=== PATIENT | female | born 1995 | race Two or more races ===

== ENCOUNTER → 2024-10-21 | Outpatient (CLI) | payer MEDICAID | END | disposition home or self-care (01) | LOC: LAB 06:50 | PROVIDERS: ATTEND Obstetrics & Gynecology | DX: Z34.80 Encounter for supervision of other normal pregnancy, unspecified trimester (principal); Z3A.00 Weeks of gestation of pregnancy not specified | CPT/HCPCS: 36415; 82951; 83036; 86850; 86900; 86901 ==

== ENCOUNTER 2024-11-26 13:18 | Observation (INO) | payer MEDICAID ==
--- NOTE | 2024-11-26 14:21 | DVH ---
BIOPHYSICAL PROFILE HISTORY: GDMA1 TECHNIQUE: Multiple transabdominal real-time grayscale sonographic images through the gravid uterus of the fetus with duplex Doppler color flow and M-mode spectral analysis FINDINGS: BIOPHYSICAL PROFILE: breathing score: 2 movement score: 2 tone score: 2 Quantitative EDWIN score: 2 (EDWIN: 13.6 Cm.) Total score: The cervix not well visualized. Single live fetus in cephalic presentation. heart rate 163 beats per minute. Fundal placenta without previa or abruption IMPRESSION: Biophysical profile score: 8
[2024-11-26] MEDS ORDERED: PREN-96 PO (14:58)
[2024-11-26 15:10] LABS: Basophils # (auto) 0 10 ^3/uL (0-0.2); Basophils % (auto) 0.2 % (0.0-2.0); Eosinophils # (auto) 0 10 ^3/uL (0-0.8); Eosinophils % (auto) 0.6 % (0.0-7.0); Hematocrit 33.7 % (36.0-46.0); Hemoglobin 11.6 g/dL (12.2-16.2); Lymphocytes # (auto) 1.3 10 ^3/uL (0.4-5.4); Lymphocytes % (auto) 15.4 % (10.0-50.0); Mean Corpuscular Hemoglobin 30.2 pg (28.0-32.0); Mean Corpuscular Hgb Conc. 34.3 g/dL (32.0-36.0); Monocytes # (auto) 0.5 10 ^3/uL (0-1.3); Monocytes % (auto) 6.6 % (0.0-12.0); Neutrophils # (auto) 6.4 10 ^3/uL (1.6-8.6); Neutrophils % (auto) 77.2 % (37.0-80.0); Platelet Count (auto) 173 10^3/uL (140-450); Red Blood Cells 3.83 10^6/uL (4.0-5.20); Red Cell Distribution Width 13.5 % (11.8-14.3); White Blood Cell 8.3 10^3/uL (4.4-10.8)
[2024-11-26 15:13] LABS: Urine Bacteria FEW /hpf (None Seen); Urine Blood Negative /uL (Negative); Urine Clarity Turbid (Clear); Urine Color Yellow (Yellow); Urine Mucus FEW (None Seen); Urine Protein, UAD 1+ (Negative); Urine Specific Gravity 1.033 (1.001-1.035); Urine Squamous Epithelial Cell MOD /hpf (<5); Urine Urobilinogen 3 mg/dL (Negative); Urine WBC 5 /HPF (0-5); Urine pH 6.5 (5.0-9.0)
[2024-11-26 15:21] LABS: Protein, Urine 27.3 mg/dL (1-14)
[2024-11-26 15:23] LABS: Creatinine, Urine 189.71 mg/dL (30.0-125.0); Urine Protein/Creatinine Ratio 0.14
[2024-11-26 15:25] LABS: INR 0.91 (0.9-1.15); Partial Thromboplastin Time 25.5 SEC (24.5-34.5); Prothrombin Time 9.7 sec (9.3-11.8)
[2024-11-26 15:26] LABS: Alanine Aminotransferase 19 U/L (7-40); Albumin 3.8 g/dL (3.2-4.8); Anion Gap 8 (5-15); Aspartate Aminotransferase 14 U/L (13-40); Calcium 9.9 mg/dL (8.7-10.4); Carbon Dioxide 25 mmol/L (20-31); Chloride 106 mmol/L (98-107); Glucose 100 mg/dL (74-106); Potassium 4.1 mmol/L (3.5-5.1); Sodium 139 mmol/L (136-145); Total Protein 6.5 g/dL (5.7-8.2)
[2024-11-26 15:27] LABS: Bilirubin, Total 0.4 mg/dL (0.2-1.0)
[2024-11-26 15:28] LABS: Alkaline Phosphatase 141 U/L (46-116); Blood Urea Nitrogen 5 mg/dL (9-23)
[2024-11-26 15:42] LABS: Uric Acid 5.2 mg/dL (3.1-7.8)
--- NOTE | 2024-11-26 18:36 | DVHDS2 ---
Physician Discharge Progress N Final Diagnosis: gdm 32wks Operations or Procedures: Operations or Procedures nst reactive reviewed Condition on Discharge: Good Disposition: Home Discharge Instructions: Diet: Consistent carbohydrate Activity: No Restrictions, As Tolerated Medications: na Follow Up Care: Specialist: 1w Discharge Statement: "Patient was advised to return to the ER or call 911 if any headaches, dizziness, shortness of breath, chest pain, abdominal pain, bleeding, fevers, or worsening of medical condition. Patient was counseled about treatment plan, medications, possible side effects, patientverbalized understanding. All questions were answered to the best of my ability. This discharge took greater then 30 minutes in planning, reviewing documentation, counseling the patient, and discussing with other team members." Visit Coding OBGYN Date of Service: Nov 26, 2024 Billing Provider: CAITLYN LEONARD DO SUPERVISOR PUMPING [employer]ATION Common Visit Codes: [id number] OBS CARE (MOD), [id number] INP/OBS CARE (HIGH) CAITLYN LEONARD DO Nov 26, 2024 18:36
== END 2024-11-26 15:35 | disposition home or self-care (01) ==
LOC: UNDOADMOB 13:18 → LDRP 13:18
PROVIDERS: ADMIT Obstetrics & Gynecology; ATTEND Obstetrics & Gynecology
DX: O24.419 Gestational diabetes mellitus in pregnancy, unspecified control (principal); R79.1 Abnormal coagulation profile; Z3A.32 32 weeks gestation of pregnancy; Z79.899 Other long term (current) drug therapy; Z98.890 Other specified postprocedural states
CPT/HCPCS: 36415; 59025; 76819; 80053; 81001; 81002; 82570; 82948; 82962; 84156; 84550; 85025; 85610; 85730; 94760; G0378

== ENCOUNTER 2024-11-30 05:46 | Observation (INO) | payer MEDICAID ==
[~2024-11-30 05:46] MED LIST: PREN-96 PO
--- NOTE | 2024-11-30 08:56 | DVH ---
BIOPHYSICAL PROFILE HISTORY: GDMA1 R/O PIH TECHNIQUE: Multiple transabdominal real-time grayscale sonographic images through the gravid uterus of the fetus with duplex Doppler color flow and M-mode spectral analysis FINDINGS: BIOPHYSICAL PROFILE: breathing score: 2 movement score: 2 tone score: 2 Quantitative EDWIN score: 2 (EDWIN: 15.4 Cm.) Total score: 8 The cervix not well visualized. Single live fetus in cephalic presentation. heart rate 135 beats per minute. Grade 2 fundal placenta without previa or abruption IMPRESSION: Biophysical profile score: 8
--- NOTE | 2024-11-30 09:29 | DVHDS2 ---
Physician Discharge Progress N Final Diagnosis: testing for GDM, A1 Secondary Diagnosis: ruled out preeclampsia last visit Operations or Procedures: Operations or Procedures 29yo IUP@32.4wks, +FM, denies BAJWA/vision changes/RUQ pain/UCs/VB/LOF VSS NST reactive FKC/PreE/PTL precautions reviewed Dr. Cortés consulted, agrees with POC. Other Interventions Other Interventions [place] [address] Ph: [phone] DIAGNOSTIC IMAGING Diagnostic Imaging Report : [id number] Signed PATIENT: OMARI EDGE ACCT: [id number] UNIT: [id number] : 1995 LOC: [facility] ROOM / BED: [facility] / A AGE / SEX: 29 / F ADM STATUS: ADM IN SERVICE 9 ORDERING PHYSICIAN: MARY HOLM CNM PROCEDURE(s): BPP - BIOPHYSICAL PROFILE REASON: GDMA1 R/O PIH ORDER NUMBER(s): [id number], ACCESSION NUMBER(s): [id number] BIOPHYSICAL PROFILE HISTORY: GDMA1 R/O PIH TECHNIQUE: Multiple transabdominal real-time grayscale sonographic images through the gravid uterus of the fetus with duplex Doppler color flow and M-mode spectral analysis FINDINGS: BIOPHYSICAL PROFILE: breathing score: 2 movement score: 2 tone score: 2 Quantitative EDWIN score: 2 (EDWIN: 15.4 Cm.) Total score: 8 The cervix not well visualized. Single live fetus in cephalic presentation. heart rate 135 beats per minute. Grade 2 fundal placenta without previa or abruption IMPRESSION: Biophysical profile score: 8 ATED BY: EVIE LAMB MD DICTATED DATE/TIME: 11/30/24852 SIGNED BY: EVIE LAMB MD SIGNED DATE/TIME: 11/30/24852 CC: Condition on Discharge: Stable Disposition: Home Discharge Instructions: Diet: Consistent carbohydrate Activity: No Restrictions, As Tolerated Medications: see med list Follow Up Care: Specialist: f/u in 1 wk Discharge Statement: "Patient was advised to return to the ER or call 911 if any headaches, dizziness, shortness of breath, chest pain, abdominal pain, bleeding, fevers, or worsening of medical condition. Patient was counseled about treatment plan, medications, possible side effects, patientverbalized understanding. All questions were answered to the best of my ability. This discharge took greater then 30 minutes in planning, reviewing documentation, counseling the patient, and discussing with other team members." Visit Coding OBGYN Date of Service: Nov 30, 2024 Billing Provider: MARY HOLM CNM CABLE TESTERS HELPER Common Visit Codes: [id number] INP/OBS CARE (HIGH) CABLE TESTERS HELPER Procedure Codes: 68396-54- NON-STRESS TEST MARY HOLM CNM Nov 30, 2024 09:29
== END 2024-11-30 09:48 | disposition home or self-care (01) ==
LOC: LDRP 08:02
PROVIDERS: ADMIT Obstetrics & Gynecology; ATTEND Obstetrics & Gynecology
DX: O24.410 Gestational diabetes mellitus in pregnancy, diet controlled (principal); Z3A.32 32 weeks gestation of pregnancy; Z79.899 Other long term (current) drug therapy; Z98.890 Other specified postprocedural states
CPT/HCPCS: 59025; 76819; 81002; 82948; 82962; 94760; G0378

== ENCOUNTER 2024-12-10 15:32 | Observation (INO) | payer MEDICAID ==
--- NOTE | 2024-12-10 17:09 | DVH ---
BIOPHYSICAL PROFILE HISTORY: GDMA1 Comparison Study: US BIOPHYSICAL PROFILE on DOS: 11/30/24, US BIOPHYSICAL PROFILE on DOS: 11/26/24 TECHNIQUE: Multiple real-time grayscale sonographic images through the gravid uterus of the fetus wi th duplex Doppler color flow and M-mode spectral analysis FINDINGS: BIOPHYSICAL PROFILE: breathing score: 2 movement score: 2 tone score: 2 Quantitative EDWIN score: 2 (EDWIN: 14.5 Cm.) Total score: 8 The cervix is not visualized Single live fetus in cephalic presentation. heart rate 136 beats per minute. Grade 1, fundal/posterior placenta without previa or abruption IMPRESSION: Biophysical profile score: 8
--- NOTE | 2024-12-15 07:29 | DVHDS2 ---
Physician Discharge Progress N Final Diagnosis: gdm 34wks Operations or Procedures: Operations or Procedures nst reactive reviwed,sono Condition on Discharge: Good Disposition: Home Discharge Instructions: Diet: Consistent carbohydrate Activity: No Restrictions, As Tolerated Medications: na Follow Up Care: Primary Care Provider: 3d Discharge Statement: "Patient was advised to return to the ER or call 911 if any headaches, dizziness, shortness of breath, chest pain, abdominal pain, bleeding, fevers, or worsening of medical condition. Patient was counseled about treatment plan, medications, possible side effects, patientverbalized understanding. All questions were answered to the best of my ability. This discharge took greater then 30 minutes in planning, reviewing documentation, counseling the patient, and discussing with other team members." Visit Coding OBGYN Date of Service: Dec 10, 2024 Billing Provider: CAITLYN LEONARD DO SENIOR POLICY ANALYST Common Visit Codes: [id number] OBS CARE (HIGH) SENIOR POLICY ANALYST Procedure Codes: 02791-34- NON-STRESS TEST CAITLYN LEONARD DO Dec 15, 2024 07:29
== END 2024-12-10 17:10 | disposition home or self-care (01) ==
LOC: LDRP 15:32 → UNDOADMOB 15:32 → LDRP 15:39
PROVIDERS: ADMIT Obstetrics & Gynecology; ATTEND Obstetrics & Gynecology
DX: O24.419 Gestational diabetes mellitus in pregnancy, unspecified control (principal); Z3A.34 34 weeks gestation of pregnancy; Z79.899 Other long term (current) drug therapy; Z98.890 Other specified postprocedural states
CPT/HCPCS: 59025; 76819; 81002; 82948; 94760; G0378

== ENCOUNTER 2024-12-17 15:33 | Observation (INO) | payer MEDICAID ==
--- NOTE | 2024-12-17 17:05 | DVH ---
BIOPHYSICAL PROFILE HISTORY: GDMA1 TECHNIQUE: Multiple real-time grayscale sonographic images through the gravid uterus of the fetus wi th duplex Doppler color flow. FINDINGS: BIOPHYSICAL PROFILE: breathing score: 2 movement score: 2 tone score: 2 Quantitative EDWIN score: 2 Total score: 8 out of 8 Single live intrauterine . heart rate of 133 beats per minute. lie cephalic. EDWIN 16.3 cm. Placenta fundal lead positioned. Placental calcifications. IMPRESSION: Biophysical profile score: 8 out of 8
--- NOTE | 2024-12-18 05:49 | DVHDS2 ---
Physician Discharge Progress N Final Diagnosis: gdm 35wks Operations or Procedures: Operations or Procedures nst reactive reviwed,sono Condition on Discharge: Good Disposition: Home Discharge Instructions: Diet: Consistent carbohydrate Activity: No Restrictions, As Tolerated Medications: na Follow Up Care: Specialist: 1w Discharge Statement: "Patient was advised to return to the ER or call 911 if any headaches, dizziness, shortness of breath, chest pain, abdominal pain, bleeding, fevers, or worsening of medical condition. Patient was counseled about treatment plan, medications, possible side effects, patientverbalized understanding. All questions were answered to the best of my ability. This discharge took greater then 30 minutes in planning, reviewing documentation, counseling the patient, and discussing with other team members." Visit Coding OBGYN Date of Service: Dec 17, 2024 Billing Provider: CAITLYN LEONARD DO COUNTY DEMONSTRATOR Common Visit Codes: [id number] OBS CARE (HIGH) COUNTY DEMONSTRATOR Procedure Codes: 10537-32- NON-STRESS TEST CAITLYN LEONARD DO Dec 18, 2024 05:49
== END 2024-12-17 16:54 | disposition home or self-care (01) ==
LOC: LDRP 15:33
PROVIDERS: ADMIT Obstetrics & Gynecology; ATTEND Obstetrics & Gynecology
DX: O24.419 Gestational diabetes mellitus in pregnancy, unspecified control (principal); Z3A.35 35 weeks gestation of pregnancy; Z79.899 Other long term (current) drug therapy; Z98.890 Other specified postprocedural states
CPT/HCPCS: 59025; 76819; 81002; 82948; 82962; 94760; G0378

== ENCOUNTER 2024-12-21 15:54 | Observation (INO) | payer MEDICAID ==
--- NOTE | 2024-12-21 16:33 | DVH ---
BIOPHYSICAL PROFILE HISTORY: GDMA1 TECHNIQUE: Multiple real-time grayscale sonographic images through the gravid uterus of the fetus wi th duplex Doppler color flow. FINDINGS: BIOPHYSICAL PROFILE: breathing score: 2 movement score: 2 tone score: 2 Quantitative EDWIN score: 2 Total score: 8 out of 8 Live intrauterine with heart rate of 142 beats per minute. lie is cephalic. P lacenta is posteriorly/fundally positioned. IMPRESSION: Biophysical profile score: 8 out of 8
--- NOTE | 2024-12-21 17:03 | DVHDS2 ---
Physician Discharge Progress N Final Diagnosis: testing for GDM, A1 Operations or Procedures: Operations or Procedures 29yo IUP@35.5wks VSS NST reactive FKC/PTL precautions reviewed Dr. Cortés consulted, agrees with POC. Other Interventions Other Interventions [address] [address] Ph: [phone] DIAGNOSTIC IMAGING Diagnostic Imaging Report : [id number] Signed PATIENT: OMARI EDGE ACCT: [id number] UNIT: [id number] : 1995 LOC: [facility] ROOM / BED: TRIAGE1 / A AGE / SEX: 29 / F ADM STATUS: ADM IN SERVICE 1603 ORDERING PHYSICIAN: MARY HOLM CNM PROCEDURE(s): BPP - BIOPHYSICAL PROFILE REASON: GDMA1 ORDER NUMBER(s): [id number], ACCESSION NUMBER(s): [id number] BIOPHYSICAL PROFILE HISTORY: GDMA1 TECHNIQUE: Multiple real-time grayscale sonographic images through the gravid uterus of the fetus with duplex Doppler color flow. FINDINGS: BIOPHYSICAL PROFILE: breathing score: 2 movement score: 2 tone score: 2 Quantitative EDWIN score: 2 Total score: 8 out of 8 Live intrauterine with heart rate of 142 beats per minute. lie is cephalic. Placenta is posteriorly/fundally positioned. IMPRESSION: Biophysical profile score: 8 out of 8 ATED BY: DEBBIE HUBBARD MD DICTATED DATE/TIME: 12/21/24 1631 SIGNED BY: DEBBIE HUBBARD MD SIGNED DATE/TIME: 12/21/24 1631 CC: Condition on Discharge: Stable Disposition: Home Discharge Instructions: Diet: Consistent carbohydrate Activity: No Restrictions, As Tolerated Medications: see med list Follow Up Care: Specialist: f/u in 1wk Discharge Statement: "Patient was advised to return to the ER or call 911 if any headaches, dizziness, shortness of breath, chest pain, abdominal pain, bleeding, fevers, or worsening of medical condition. Patient was counseled about treatment plan, medications, possible side effects, patientverbalized understanding. All questions were answered to the best of my ability. This discharge took greater then 30 minutes in planning, reviewing documentation, counseling the patient, and discussing with other team members." Visit Coding OBGYN Date of Service: Dec 21, 2024 Billing Provider: MARY HOLM CNM GRAPHIC DESIGN ASSISTANT Common Visit Codes: [id number] OBS CARE (HIGH) GRAPHIC DESIGN ASSISTANT Procedure Codes: 22590-57- NON-STRESS TEST MARY HOLM CNM Dec 21, 2024 17:02
== END 2024-12-21 17:07 | disposition home or self-care (01) ==
LOC: LDRP 15:54 → UNDOADMOB 15:54 → LDRP 16:03 → UNDODISOB 17:07
PROVIDERS: ADMIT Obstetrics & Gynecology; ATTEND Obstetrics & Gynecology
DX: O24.419 Gestational diabetes mellitus in pregnancy, unspecified control (principal); Z98.890 Other specified postprocedural states; Z79.899 Other long term (current) drug therapy; Z3A.35 35 weeks gestation of pregnancy
CPT/HCPCS: 59025; 76819; 81002; 82948; 82962; 94760; G0378

== ENCOUNTER 2024-12-28 06:23 | Observation (INO) | payer MEDICAID ==
--- NOTE | 2024-12-28 09:28 | DVH ---
BIOPHYSICAL PROFILE HISTORY: GDMA1 Comparison Study: US BIOPHYSICAL PROFILE on DOS: 12/21/24, US BIOPHYSICAL PROFILE on DOS: 12/17/24, US B IOPHYSICAL PROFILE on DOS: 12/10/24, US BIOPHYSICAL PROFILE on DOS: 11/30/24, US BIOPHYSICAL PROFILE on DOS: 11/26/24 TECHNIQUE: Multiple real-time grayscale sonographic images through the gravid uterus of the fetus wi th duplex Doppler color flow and M-mode spectral analysis FINDINGS: BIOPHYSICAL PROFILE: breathing score: 2 movement score: 2 tone score: 2 Quantitative EDWIN score: 2 (EDWIN: 15.1 Cm.) Total score: 8 The cervix is not visualized Single live fetus in cephalic presentation. heart rate 137.22 beats per minute. Fundal/posterior placenta without previa or abruption IMPRESSION: Biophysical profile score: 8
--- NOTE | 2024-12-28 09:55 | DVHDS2 ---
Physician Discharge Progress N Final Diagnosis: testing for GDM, A1 Operations or Procedures: Operations or Procedures 29yo IUP@36.4wks VSS NST reactive FKC/PTL precautions reviewed. Dr. Cortés consulted, agrees with POC. Other Interventions Other Interventions [address] [address] Ph: [phone] DIAGNOSTIC IMAGING Diagnostic Imaging Report : [id number] Signed PATIENT: OMARI EDGE ACCT: [id number] UNIT: [id number] : 1995 LOC: LD ROOM / BED: TRIAGE2 / A AGE / SEX: 29 / F ADM STATUS: ADM IN SERVICE 2 ORDERING PHYSICIAN: MARY HOLM CNM PROCEDURE(s): BPP - BIOPHYSICAL PROFILE REASON: GDMA1 ORDER NUMBER(s): [id number], ACCESSION NUMBER(s): [id number] BIOPHYSICAL PROFILE HISTORY: GDMA1 Comparison Study: US BIOPHYSICAL PROFILE on DOS: 12/21/24, US BIOPHYSICAL PROFILE on DOS: 12/17/24, US BIOPHYSICAL PROFILE on DOS: 12/10/24, US BIOPHYSICAL PROFILE on DOS: 11/30/24, US BIOPHYSICAL PROFILE on DOS: 11/26/24 TECHNIQUE: Multiple real-time grayscale sonographic images through the gravid uterus of the fetus with duplex Doppler color flow and M-mode spectral analysis FINDINGS: BIOPHYSICAL PROFILE: breathing score: 2 movement score: 2 tone score: 2 Quantitative EDWIN score: 2 (EDWIN: 15.1 Cm.) Total score: 8 The cervix is not visualized Single live fetus in cephalic presentation. heart rate 137.22 beats per minute. Fundal/posterior placenta without previa or abruption IMPRESSION: Biophysical profile score: 8 ATED BY: TAVARES FUNES MD DICTATED DATE/TIME: 12/28/24924 SIGNED BY: TAVARES FUNES MD SIGNED DATE/TIME: 12/28/24924 CC: Condition on Discharge: Stable Disposition: Home Discharge Instructions: Diet: Consistent carbohydrate Activity: No Restrictions, As Tolerated Medications: see med list Follow Up Care: Specialist: f/u in 1 wk Discharge Statement: "Patient was advised to return to the ER or call 911 if any headaches, dizziness, shortness of breath, chest pain, abdominal pain, bleeding, fevers, or worsening of medical condition. Patient was counseled about treatment plan, medications, possible side effects, patientverbalized understanding. All questions were answered to the best of my ability. This discharge took greater then 30 minutes in planning, reviewing documentation, counseling the patient, and discussing with other team members." Visit Coding OBGYN Date of Service: Dec 28, 2024 Billing Provider: MARY HOLM CNM ENERGY INFRASTRUCTURE ENGINEER Common Visit Codes: [id number] OBS CARE (HIGH) ENERGY INFRASTRUCTURE ENGINEER Procedure Codes: 48743-47- NON-STRESS TEST MARY HOLM CNM Dec 28, 2024 09:55
== END 2024-12-28 09:54 | disposition home or self-care (01) ==
LOC: LDRP 08:50
PROVIDERS: ADMIT Obstetrics & Gynecology; ATTEND Obstetrics & Gynecology
DX: O24.419 Gestational diabetes mellitus in pregnancy, unspecified control (principal); Z3A.36 36 weeks gestation of pregnancy; Z79.899 Other long term (current) drug therapy; Z98.890 Other specified postprocedural states
CPT/HCPCS: 59025; 76819; 81002; 82948; 82962; 94760; G0378

== ENCOUNTER → 2024-12-29 | Outpatient (CLI) | payer MEDICAID ==
[2024-12-29 08:48] LABS: Hematocrit 33.7 % (36.0-46.0); Hemoglobin 11.7 g/dL (12.2-16.2); Mean Corpuscular Hemoglobin 30.3 pg (28.0-32.0); Mean Corpuscular Volume 87.2 fL (80.0-100.0); Nucleated Red Blood Cells % 0.1 %
[2024-12-30 17:07] LABS: Chlamydia Trachomatis, NAA Negative (Negative); Neisseria gonorrhoeae, NAA Negative (Negative)
== END | disposition home or self-care (01) ==
LOC: LAB 08:28
PROVIDERS: ATTEND Obstetrics & Gynecology
DX: Z34.00 Encounter for supervision of normal first pregnancy, unspecified trimester (principal); Z72.51 High risk heterosexual behavior; Z3A.00 Weeks of gestation of pregnancy not specified
CPT/HCPCS: 36415; 85025; 86780

== ENCOUNTER 2025-01-04 08:45 | Observation (INO) | payer MEDICAID ==
--- NOTE | 2025-01-04 09:59 | DVH ---
BIOPHYSICAL PROFILE HISTORY: GDMA1 TECHNIQUE: Multiple transabdominal real-time grayscale sonographic images through the gravid uterus o f the fetus with duplex doppler color flow and M-mode spectral analysis FINDINGS: BIOPHYSICAL PROFILE: breathing score: 2 movement score: 2 tone score: 2 Quantitative EDWIN score: 2 (EDWIN: 13.2 cm.) Total score: 8/8 Single live fetus in cephalic presentation. heart rate 139 beats per minute. Fundal, posterior placenta without previa or abruption Biophysical profile score 8/8 corresponding to an BAILEE of 01/21/25 IMPRESSION: Biophysical profile score: 8/8
--- NOTE | 2025-01-04 11:10 | DVHDS2 ---
Physician Discharge Progress N Final Diagnosis: testing for GDM, A1 Operations or Procedures: Operations or Procedures 29yo IUP@37.4wks VSS NST reactive FKC/labor precautions reviewed Dr. Cortés consulted, agrees with POC. Condition on Discharge: Stable Disposition: Home Discharge Instructions: Diet: Consistent carbohydrate Activity: No Restrictions, As Tolerated Medications: SEE MED LIST Follow Up Care: Specialist: f/u in 1 wk Discharge Statement: "Patient was advised to return to the ER or call 911 if any headaches, dizziness, shortness of breath, chest pain, abdominal pain, bleeding, fevers, or worsening of medical condition. Patient was counseled about treatment plan, medications, possible side effects, patientverbalized understanding. All questions were answered to the best of my ability. This discharge took greater then 30 minutes in planning, reviewing documentation, counseling the patient, and discussing with other team members." Visit Coding OBGYN Date of Service: Jan 04, 2025 Billing Provider: MARY HOLM CNM TABLE GAMES SUPERVISOR Common Visit Codes: [id number] OBS CARE (HIGH) TABLE GAMES SUPERVISOR Procedure Codes: 19438-18- NON-STRESS TEST MARY HOLM CNM Jan 04, 2025 11:10
== END 2025-01-04 10:58 | disposition home or self-care (01) ==
LOC: LDRP 08:45
PROVIDERS: ADMIT Obstetrics & Gynecology; ATTEND Obstetrics & Gynecology
DX: O24.419 Gestational diabetes mellitus in pregnancy, unspecified control (principal); O36.5930 Maternal care for other known or suspected poor fetal growth, third trimester, not applicable or unspecified; Z3A.37 37 weeks gestation of pregnancy; Z98.890 Other specified postprocedural states; Z79.899 Other long term (current) drug therapy
CPT/HCPCS: 59025; 76819; 81002; 82948; 82962; 94760; G0378

== ENCOUNTER 2025-01-11 07:29 | Observation (INO) | payer MEDICAID ==
--- NOTE | 2025-01-11 09:40 | DVH ---
BIOPHYSICAL PROFILE HISTORY: GDMA1 Comparison Study: US BIOPHYSICAL PROFILE on DOS: 01/04/25, US BIOPHYSICAL PROFILE on DOS: 12/28/24, US B IOPHYSICAL PROFILE on DOS: 12/21/24, US BIOPHYSICAL PROFILE on DOS: 12/17/24, US BIOPHYSICAL PROFILE on DOS: 12/10/24 TECHNIQUE: Multiple real-time grayscale sonographic images through the gravid uterus of the fetus wi th duplex Doppler color flow and M-mode spectral analysis FINDINGS: BIOPHYSICAL PROFILE: breathing score: 2 movement score: 2 tone score: 2 Quantitative EDWIN score: 2 (EDWIN: 16.7 Cm.) Total score: 8 The cervix is not visualized Single live fetus in cephalic presentation. heart rate 141 beats per minute. Fundal/posterior placenta without previa or abruption. placental venous stephens is noted. IMPRESSION: Biophysical profile score: 8
--- NOTE | 2025-01-11 11:39 | DVHDS2 ---
Physician Discharge Progress N Final Diagnosis: testing for GDM, A1 Operations or Procedures: Operations or Procedures 29yo IUP@38.4wks VSS NST reactive FKC/labor precautions reviewed Dr. Cortés consulted, agree with POC. Other Interventions Other Interventions [address] [address] Ph: [phone] DIAGNOSTIC IMAGING Diagnostic Imaging Report : [id number] Signed PATIENT: OMARI EDGE ACCT: [id number] UNIT: [id number] : 1995 LOC: LD ROOM / BED: LD1 / A AGE / SEX: 29 / F ADM STATUS: ADM IN SERVICE 5 ORDERING PHYSICIAN: CAITLYN CORTÉS DO PROCEDURE(s): BPP - BIOPHYSICAL PROFILE REASON: GDMA1 ORDER NUMBER(s): [id number], ACCESSION NUMBER(s): [id number] BIOPHYSICAL PROFILE HISTORY: GDMA1 Comparison Study: US BIOPHYSICAL PROFILE on DOS: 01/04/25, US BIOPHYSICAL PROFILE on DOS: 12/28/24, US BIOPHYSICAL PROFILE on DOS: 12/21/24, US BIOPHYSICAL PROFILE on DOS: 12/17/24, US BIOPHYSICAL PROFILE on DOS: 12/10/24 TECHNIQUE: Multiple real-time grayscale sonographic images through the gravid uterus of the fetus with duplex Doppler color flow and M-mode spectral analysis FINDINGS: BIOPHYSICAL PROFILE: breathing score: 2 movement score: 2 tone score: 2 Quantitative EDWIN score: 2 (EDWIN: 16.7 Cm.) Total score: 8 The cervix is not visualized Single live fetus in cephalic presentation. heart rate 141 beats per minute. Fundal/posterior placenta without previa or abruption. placental venous stephens is noted. IMPRESSION: Biophysical profile score: 8 ATED BY: TAVARES FUNES MD DICTATED DATE/TIME: 01/11/25937 SIGNED BY: TAVARES FUNES MD SIGNED DATE/TIME: 01/11/25937 CC: Condition on Discharge: Stable Disposition: Home Discharge Instructions: Diet: Regular Activity: No Restrictions, As Tolerated Follow Up/Referral: Keep all scheduled appointments Medications: continue all medications exactly as prescribed Follow Up Care: Specialist: f/u in 1wk Discharge Statement: "Patient was advised to return to the ER or call 911 if any headaches, dizziness, shortness of breath, chest pain, abdominal pain, bleeding, fevers, or worsening of medical condition. Patient was counseled about treatment plan, medications, possible side effects, patientverbalized understanding. All questions were answered to the best of my ability. This discharge took greater then 30 minutes in planning, reviewing documentation, counseling the patient, and discussing with other team members." Visit Coding OBGYN Date of Service: Jan 11, 2025 Billing Provider: MARY HOLM CNM AGRICULTURAL EQUIPMENT SALES MANAGER Common Visit Codes: [id number] OBS CARE (HIGH) AGRICULTURAL EQUIPMENT SALES MANAGER Procedure Codes: 53456-26- NON-STRESS TEST MARY HOLM CNM Jan 11, 2025 11:38
== END 2025-01-11 10:21 | disposition home or self-care (01) ==
LOC: LDRP 08:59 → UNDOADMOB 08:59 → LDRP 09:07
PROVIDERS: ADMIT Obstetrics & Gynecology; ATTEND Obstetrics & Gynecology
DX: O24.419 Gestational diabetes mellitus in pregnancy, unspecified control (principal); Z98.890 Other specified postprocedural states; Z79.899 Other long term (current) drug therapy; Z3A.38 38 weeks gestation of pregnancy
CPT/HCPCS: 59025; 76819; 81002; 82948; 82962; G0378

== ENCOUNTER 2025-01-18 00:43 | Observation (INO) | payer MEDICAID ==
[~2025-01-18] VITALS: Ht 167.6 cm; Wt 94.3 kg
--- NOTE | 2025-01-18 10:47 | DVH ---
BIOPHYSICAL PROFILE HISTORY: GDMA1 Comparison Study: US BIOPHYSICAL PROFILE on DOS: 01/11/25, US BIOPHYSICAL PROFILE on DOS: 01/04/25, US BIOPHYSICAL PROFILE on DOS: 12/28/24, US BIOPHYSICAL PROFILE on DOS: 12/21/24, US BIOPHYSICAL PROFILE on DOS: 12/17/24 TECHNIQUE: Multiple real-time grayscale sonographic images through the gravid uterus of the fetus wi th duplex Doppler color flow and M-mode spectral analysis FINDINGS: BIOPHYSICAL PROFILE: breathing score: 2 movement score: 2 tone score: 2 Quantitative EDWIN score: 2 (EDWIN: 11.6 Cm.) Total score: 8 The cervix is not visualized Single live fetus in cephalic presentation. heart rate 136 beats per minute. Fundal/posterior placenta without previa or abruption IMPRESSION: Biophysical profile score: 8
--- NOTE | 2025-01-18 10:48 | DVHDS2 ---
Physician Discharge Progress N Final Diagnosis: testing for GDM, A1 Operations or Procedures: Operations or Procedures 29yo IUP@39.4wks VSS NST reactive BPP 01/28 FKC/labor precautions reviewed Condition on Discharge: Stable Disposition: Home Discharge Instructions: Diet: Consistent carbohydrate Activity: No Restrictions, As Tolerated Medications: see med list Follow Up Care: Specialist: f/u on friday01/21/25 for scheduled IOL Discharge Statement: "Patient was advised to return to the ER or call 911 if any headaches, dizziness, shortness of breath, chest pain, abdominal pain, bleeding, fevers, or worsening of medical condition. Patient was counseled about treatment plan, medications, possible side effects, patientverbalized understanding. All questions were answered to the best of my ability. This discharge took greater then 30 minutes in planning, reviewing do cumentation, counseling the patient, and discussing with other team members." Visit Coding OBGYN Date of Service: Jan 18, 2025 Billing Provider: MARY HOLM CNM FLEET DISPATCH MANAGER Common Visit Codes: 34349-[id number] OBS CARE (HIGH) FLEET DISPATCH MANAGER Procedure Codes: 49960-61- NON-STRESS TEST MARY HOLM CNM Jan 18, 2025 10:48
== END 2025-01-18 10:59 | disposition home or self-care (01) ==
LOC: LDRP 09:05
PROVIDERS: ADMIT Obstetrics & Gynecology; ATTEND Obstetrics & Gynecology
DX: O24.419 Gestational diabetes mellitus in pregnancy, unspecified control (principal); Z98.890 Other specified postprocedural states; Z79.899 Other long term (current) drug therapy; Z3A.39 39 weeks gestation of pregnancy
CPT/HCPCS: 59025; 76819; 81002; 82948; 94760; G0378

== ENCOUNTER 2025-01-20 10:48 | Observation (INO) | payer MEDICAID ==
[2025-01-21] MEDS ORDERED: DOCU-94 PO (07:53)
[2025-01-21] MEDS ORDERED: IBUP-1454 PO (07:53)
--- NOTE | 2025-01-21 08:18 | DVHDS2 ---
Physician Discharge Progress N Final Diagnosis: 39wks labor check Operations or Procedures: Operations or Procedures nst reactive reviwed, Condition on Discharge: Good Disposition: Home Discharge Instructions: Diet: Consistent carbohydrate Activity: Light activity Medications: na Follow Up Care: Specialist: 1d Discharge Statement: "Patient was advised to return to the ER or call 911 if any headaches, dizziness, shortness of breath, chest pain, abdominal pain, bleeding, fevers, or worsening of medical condition. Patient was counseled about treatment plan, medications, possible side effects, patientverbalized understanding. All questions were answered to the best of my ability. This discharge took greater then 30 minutes in planning, reviewing docu mentation, counseling the patient, and discussing with other team members." Visit Coding OBGYN Date of Service: Jan 20, 2025 Billing Provider: CAITLYN LEONARD DO PRODUCTION MACHINIST Common Visit Codes: [id number] OBS CARE (HIGH) PRODUCTION MACHINIST Procedure Codes: 63805-47- NON-STRESS TEST CAITLYN LEONARD DO Jan 21, 2025 08:18
== END 2025-01-20 14:05 | disposition home or self-care (01) ==
LOC: LDRP 10:48
PROVIDERS: ADMIT Obstetrics & Gynecology; ATTEND Obstetrics & Gynecology
DX: O62.9 Abnormality of forces of labor, unspecified (principal); Z3A.39 39 weeks gestation of pregnancy; Z79.899 Other long term (current) drug therapy
CPT/HCPCS: 59025; 81002; 82948; 94760; G0378

== ENCOUNTER 2025-01-20 18:02 | Inpatient (IN) | payer MEDICAID ==
[~2025-01-20] VITALS: Ht 165.1 cm; Wt 94.3 kg
[2025-01-20] MEDS ORDERED: NALBUPHINE HCL 10 MG/1ml INJECTION IV PRN (20:00)
[2025-01-20] MEDS ORDERED: LIDOCAINE 2%HCL (LOCAL ANESTH.) INJ 20ML MDV IJ PRN (20:00)
[2025-01-20 20:35] LABS: Hematocrit 32.7 % (36.0-46.0); Hemoglobin 11.2 g/dL (12.2-16.2); Mean Corpuscular Hemoglobin 29.8 pg (28.0-32.0); Mean Corpuscular Volume 86.7 fL (80.0-100.0); Nucleated Red Blood Cells % 0.1 %
[2025-01-20 20:44] LABS: Urine Protein, UAD Negative (Negative)
[2025-01-20 20:53] LABS: Alanine Aminotransferase 20 U/L (7-40); Anion Gap 9 (5-15); BUN/Creatinine Ratio 13.0 (10.0-20.0); Calcium 9.0 mg/dL (8.7-10.4); Carbon Dioxide 24 mmol/L (20-31); Chloride 103 mmol/L (98-107); Glucose 81 mg/dL (74-106); Potassium 3.7 mmol/L (3.5-5.1); Sodium 136 mmol/L (136-145); Total Protein 6.3 g/dL (5.7-8.2)
[2025-01-20 20:54] LABS: Albumin 3.8 g/dL (3.2-4.8); Bilirubin, Total 0.3 mg/dL (0.2-1.0); INR 0.86 (0.9-1.15); Partial Thromboplastin Time 24.5 SEC (24.5-34.5); Prothrombin Time 9.3 sec (9.3-11.8)
[2025-01-20] MEDS: fentaNYL CITRATE 100 MCG/2 ML VL IV ONE (21:09)
[2025-01-20] MEDS: LACTATED RINGER'S 1,000 ML IV SCH (21:13)
[2025-01-20 21:36] LABS: Amphetamine Screen, Urine Neg (NEGATIVE); Barbiturate Scree,Urine Neg (NEGATIVE); Benzodiazephine Screen, Urine Neg (NEGATIVE); Cannabinoid Screen, Urine Neg (NEGATIVE); Cocaine Screen, Urine Neg (NEGATIVE); Opiate Scree,Urine Neg (NEGATIVE); Phencyclidine Screen, Urine Neg (NEGATIVE)
[2025-01-20 21:37] LABS: Alkaline Phosphatase 216 U/L (46-116); Blood Urea Nitrogen 9 mg/dL (9-23)
[2025-01-20] MEDS ORDERED: LIDOCAINE HCL 2 %PF INJ 10ML AMP IJ ONE (22:45)
[2025-01-20] MEDS ORDERED: NALOXONE HCL 0.4 MG/ML VIAL IV ONE (22:45)
[2025-01-20] MEDS: WITCH HAZEL-GLYCERIN PAD TOP PRN (23:01)
[2025-01-20] MEDS: DERMOPLAST 60ML BOTTLE TOP PRN (23:01)
[2025-01-20] MEDS: LACTATED RINGER'S 1,000 ML IV ONE (23:02)
[2025-01-20] MEDS: PHISODERM TOP SOLN 240ML BTL TOP PRN (23:02)
--- NOTE | 2025-01-20 23:22 | DVHHP2 ---
OB CC & HPI Date Date of Admission: Jan 20, 2025 Patient Identification: : 2 Para: 0 EDC: Jan 21, 2025 EGA: 39w6d Chief Complaints: Reason for admission: active labor History of Present Complaints Candy Sol is a 29yo IUP@39w6d presenting for rule out labor Pt reports UCs Q5 min that started last night (01/19), but got worse this morning. She states she is no longer able to tolerate the pain and wants medication Denies LOF/VB/BAJWA/vision changes/RUQ pain. States she has some vaginal spotting, but no leaking fluid. Endorses +FM. Has induction scheduled for GDMA1 tomorrow 01/21/25 PNC: Transfer to [facility] OB, adequate visits. complicated by GDMA1, well controlled. GBS negative. OB hx: SAB x1 Past Medical History Cardiac: No pertinent Hx Pulmonary: No pertinent Hx Central Nervous System: No pertinent Hx GI: No pertinent Hx Hemotology/Oncology: No pertinent Hx Hepatobiliary: No pertinent Hx Psychiatric: No pertinent Hx Musculoskeletal: No pertinent Hx Rheumotologic: No pertinent Hx Infectious Disease: No peritnent Hx ENT: No pertinent Hx Renal/: No pertinent Hx Endocrine: No pertinent Hx Dermatology: No pertinent Hx Past Surgical History: No pertinent Hx OB History OB History Care: Good Care Ultrasounds: Normal mid trimester US Obstetrical Complications: Gestational Diabetes (A1GDM) Medical Complications: None Allergies: Coded Allergies: NO KNOWN ALLERGIES (Unverified , 01/18/25) Home Meds Reported Medications Vit W/ Ferrous Fumara ( One Daily) Daily Tab, 1 TAB PO DAILY, #90 TAB 3 Refills 11/26/24 Current Medications Current Medications Medications (Trade) Dose Ordered Sig/David Route PRN Reason Start Time Stop Time Status Last Admin Lactated Ringer's 1,000 ml @ 125 mls/hr Q8H IV 01/20/25 20:00 01/20/25 21:13 Nalbuphine HCl (Nubain) 10 mg Q4HP PRN IV MODERATE PAIN (4-6 PAIN SCALE) 01/20/25 20:00 Marta Dougherty (Tucks) 1 pad PRN PRN TOP PERINEAL AREA DISCOMFORT 01/20/25 20:00 01/20/25 23:01 Sodium Lauryl Sulfate (Phisoderm) 240 ml PRN PRN TOP PERINEAL AREA DISCOMFORT 01/20/25 20:00 01/20/25 23:02 Benzocaine (Dermoplast) 1 applic PRN PRN TOP PERINEAL AREA DISCOMFORT 01/20/25 20:00 01/20/25 23:01 Lidocaine HCl (Xylocaine) 20 ml ONCE PRN IJ PERINEAL AREA DISCOMFORT 01/20/25 20:00 Family & Social History Family/Social History Blood Type: O+ Rubella: immune RPR/VDRL: Negative GBS Status: Negative HBsAG: Negative Review of Systems Constitutional: No symptom reported Ears, Nose, & Throat: No symptom reported Eyes: No symptom reported Pulmonary/Respiratory: No symptom reported Cardiovascular: No symptom reported Gastrointestinal: No symptom reported Genitourinary: No symptom reported Musculoskeletal: No symptom reported Skin: No symptom reported Psychiatric: No symptom reported Endocrine: No symptom reported Hemotologic/Lymphatic: No symptom reported OB Admission Exam Physical Exam Vitals: Vital Signs Date Time Temp Pulse Resp B/P (MAP) Pulse Ox O2 Delivery O2 Flow Rate FiO2 01/20/25 21:09 105/63 HEENT: PERRLA Heart: Rhythm Normal Lungs: Clear Abdomen: Gravid (EFW 3400g by [employer]) Extremities: Normal Reflexes: Normal Cervical Dilatation: 3cm Effacement: Other (80) Station: -1 Membranes: Intact Heart Rate: 130's Accelerations: Accelerations Present Decelerations: No Decelerations Short Term Variability: Present Talk Show Host Variability: Average (6-25) Contractions on Admission: < 5 Minutes Apart (irregular) Intensity: Mild OB Plan Plan Admitting Diagnosis: ASSESSMENT: -29 yo , IUP at 39w6d -A1GDM -Early labor -Category 1 Tracing -GBS negative Plan: Expectant Management, Induction Other Plan: PLAN: -Plan of care discussed with patient -Process, Risks, benefits, of available management options discussed, including starting with expectant management, augmentation if indicated, Internal monitoring of UCs & FHT, AROM, amnioinfusion etc only when indicated, and discharging home to come back later -Patient agrees to starting with expectant management at this time, as she desires pain management; other interventions as indicated. Informed Consent obtained -Consent for possible blood transfusion obtained. -All questions answered. -Admit to Place for Labor -Routine L&D Admission orders -Admit accucheck. If WNL, OK to discontinue checks at this time. -EFM per policy. OK to be intermittent per protocol, if FHR tracing is reactive and category 1 -Encourage ambulation and/exercises / frequent position change to facilitate labor & descent -Supportive care as needed. IV pain medication ordered and OK to get epidural whenever patient desires -Re-assess cervix in 4-6 hours to evaluate need for augmentation Visit Coding OBGYN Date of Service: Jan 20, 2025 Billing Provider: FLAVIO SANTILLAN CNM VEST TAILOR Common Visit Codes: [id number] OBS CARE (HIGH) VEST TAILOR Procedure Codes: 09702-10- NON-STRESS TEST FLAVIO SANTILLAN CNM Jan 20, 2025 23:22
--- NOTE | 2025-01-20 23:28 | DVHPN2 ---
PATRICAM Labor Progress Note Date and Time Seen Date Seen: Jan 20, 2025 Time Seen: 22:30 Subjective Patient reports: Feels worse Subjective Comment Patient states that the IV pain medication made her drowsy, but did not take away the pain. Requesting epidural at this time Objective Vital Signs 1818 T: 98.5 2212 BP: 124/67 HR: 60 SpO2: 96 Monitoring Method Monitoring Method: External Heart Rate Heart Rate Baseline: 130 Heart Rate Variability: Moderate Presence of FHR Accelerations: Yes Presence of FHR Decelerations: No Changes in Trends of Patterns: No Are all 5 Components of the FH: Yes Contractions Contractions Frequency: Other (1-4, irregular) Contractions Intensity: Mild Contractions Resting Tone: Relaxed Membranes Membranes: Intact Vaginal Exam Vag Exam Deferred: Yes Medications Medications - Pitocin: No Lab Results Lab Results Vital Signs Date Time Temp Pulse Resp B/P (MAP) Pulse Ox O2 Delivery O2 Flow Rate FiO2 01/20/25 21:09 105/63 Current Medications Medications (Trade) Dose Ordered Sig/David Start Time Stop Time Status Last Admin Dose Admin Lactated Ringer's 1,000 ml @ 125 mls/hr Q8H 01/20/25 20:00 01/20/25 21:13 Nalbuphine HCl (Nubain) 10 mg Q4HP PRN 01/20/25 20:00 Marta Dougherty (Tucks) 1 pad PRN PRN 01/20/25 20:00 01/20/25 23:01 Sodium Lauryl Sulfate (Phisoderm) 240 ml PRN PRN 01/20/25 20:00 01/20/25 23:02 Benzocaine (Dermoplast) 1 applic PRN PRN 01/20/25 20:00 01/20/25 23:01 Lidocaine HCl (Xylocaine) 20 ml ONCE PRN 01/20/25 20:00 Fentanyl Citrate 100 mcg Q2HP ONCE 01/20/25 22:00 01/20/25 22:01 DC 01/20/25 21:09 Naloxone HCl (Narcan) 0.2 mg PRN ONCE 01/20/25 22:45 01/20/25 22:52 DC Ephedrine Sulfate (ePHEDrine SULFATE) 10 mg PRN ONCE 01/20/25 22:45 01/20/25 22:52 DC Fentanyl Citrate 100 mcg ONCE ONCE 01/20/25 22:45 01/20/25 22:52 DC Lidocaine HCl (Xylocaine-Pf 2% Injection) 10 ml ONCE ONCE 01/20/25 22:45 01/20/25 22:52 DC Lactated Ringer's 1,000 ml @ 1,000 mls/hr Q1H ONCE 01/20/25 22:45 01/20/25 23:44 01/20/25 23:02 Laboratory Tests Test 01/20/25 20:24 01/20/25 18:49 01/20/25 18:24 Range/Units White Blood Count 9.2 4.4-10.8 10^3/uL Red Blood Count 3.77 L 4.0-5.20 10^6/uL Hemoglobin 11.2 L 12.2-16.2 g/dL Hematocrit 32.7 L 36.0-46.0 % Mean Corpuscular Volume 86.7 80.0-100.0 fL Mean Corpuscular Hemoglobin 29.8 28.0-32.0 pg Mean Corpuscular Hemoglobin Concent 34.4 32.0-36.0 g/dL Red Cell Distribution Width 14.1 11.8-14.3 % Platelet Count 155 140-450 10^3/uL Mean Platelet Volume 11.2 H 6.9-10.8 fL Neutrophils (%) (Auto) 82.3 H 37.0-80.0 % Lymphocytes (%) (Auto) 12.4 10.0-50.0 % Monocytes (%) (Auto) 4.7 0.0-12.0 % Eosinophils (%) (Auto) 0.4 0.0-7.0 % Basophils (%) (Auto) 0.2 0.0-2.0 % Neutrophils # (Auto) 7.6 1.6-8.6 10 ^3/uL Lymphocytes # (Auto) 1.1 0.4-5.4 10 ^3/uL Monocytes # (Auto) 0.4 0-1.3 10 ^3/uL Eosinophils # (Auto) 0 0-0.8 10 ^3/uL Basophils # (Auto) 0 0-0.2 10 ^3/uL Nucleated Red Blood Cells 0.1 % Prothrombin Time 9.3 9.3-11.8 sec Prothrombin Time INR 0.86 L 0.9-1.15 Activated Partial Thromboplast Time 24.5 24.5-34.5 SEC Sodium Level 136 136-145 mmol/L Potassium Level 3.7 3.5-5.1 mmol/L Chloride Level 103 98-107 mmol/L Carbon Dioxide Level 24 20-31 mmol/L Anion Gap 9 5-15 Blood Urea Nitrogen 9 9-23 mg/dL Creatinine 0.69 0.550-1.02 mg/dL Glomerular Filtration Rate Calc 121 >90 mL/min BUN/Creatinine Ratio 13.0 10.0-20.0 Serum Glucose 81 74-106 mg/dL Calcium Level 9.0 8.7-10.4 mg/dL Total Bilirubin 0.3 0.2-1.0 mg/dL Aspartate Amino Transferase (AST) 23 13-40 U/L Alanine Aminotransferase (ALT) 20 7-40 U/L Alkaline Phosphatase 216 H 46-116 U/L Total Protein 6.3 5.7-8.2 g/dL Albumin 3.8 3.2-4.8 g/dL Treponema pallidum Antibody Non-reactive Negative Urine Color Light-yellow Yellow Urine Clarity Clear Clear Urine pH 6.0 5.0-9.0 Urine Specific [place] 1.016 1.001-1.035 Urine Protein Negative Negative Urine Ketones Negative Negative Urine Blood Negative Negative /uL Urine Nitrite Negative Negative Urine Bilirubin Negative Negative Urine Urobilinogen Normal Negative mg/dL Urine Leukocyte Esterase Negative Negative /uL Urine RBC 1 0 - 4 /hpf Urine Microscopic WBC < 1 0-5 /HPF Urine Squamous Epithelial Cells Few <5 /hpf Urine Bacteria Few H None Seen /hpf Urine Mucus Few None Seen Urine Glucose Normal Normal mg/dL Urine Opiates Screen Neg NEGATIVE Urine Fentanyl Screen Neg NEGATIVE Urine Barbiturates Screen Neg NEGATIVE Urine Phencyclidine Screen Neg NEGATIVE Urine Amphetamines Screen Neg NEGATIVE Urine Benzodiazepines Screen Neg NEGATIVE Urine Cocaine Screen Neg NEGATIVE Urine Cannabinoids Screen Neg NEGATIVE POC Glucose 119 H 70-106 mg/dl Assessment Assessment -29 year old with IUP at 39w6d -A1GDM -Early Labor -GBS negative Plan Plan -Extensively discussed pain management options with patient. Answered all patient questions and concerns -Admit accucheck WNL. OK to d/c checks at this time. -Patient OK to get epidural at this time -Re assess cervix after patient is comfortable to determine need for augmentation Plan discussed with: Patient Visit Coding OBGYN Date of Service: Jan 20, 2025 Billing Provider: FLAVIO SANTILLAN CNM AREA ATTENDANT Common Visit Codes: [id number] INP/OBS CARE(MOD) FLAVIO SANTILLAN CNM Jan 20, 2025 23:28
--- NOTE | 2025-01-20 23:59 | EPIDURAL ---
Anesthesia Procedural Note - Epidural Informed consent obtained?: Yes Medication Administered: Fentanyl 100 mcg Sterile prept drape: Yes Spinal level of insertion: L4-L5 Test dose of lidocaine & Epine: Negative Infusion started: Yes Start time: 11:20 End time: 11:45 Procedure description Procedure description: Called for labor analgesia. Patient examined, history taken and chart reviewed. Patient is here in labor requesting epidural. Informed consent for CSE obtained. Sitting position, sterile prep and drape. Time out done (BP 122/80 HR 69 spO2 99). L4-5 space infiltrated with 1% lido. Epidural needle placed with FRANK at 7cm. 25G spinal needle +clear CSF. 15mcg fentanyl given IT. Epidural catheter secured at 14cm. Aspiration and test dose (3cc 1.5% lido with epi) negative. 85mcg fentanyl given via epidural. Patient reports good pain relief. 0.2% ropivacaine infusion started (BP 117/67 HR 67 spO2 98). Will follow as needed. DARION RILEY MD Jan 20, 2025 23:59
[2025-01-21] MEDS: fentaNYL CITRATE 100 MCG/2 ML VL IV ONE (00:17)
[2025-01-21] MEDS: ROPIVACAINE HCL 100 ML ONE (00:18)
[2025-01-21] MEDS ORDERED: TERBUTALINE SULFATE 1 MG/ML 1ML VIAL SC PRN (00:45)
[2025-01-21] MEDS: LACT. RINGERS/OXYTOCIN 20UNITS 1,000 ML IV SCH (01:03)
[2025-01-21] MEDS ORDERED: DOCU-94 PO (07:53)
[2025-01-21] MEDS ORDERED: IBUP-1454 PO (07:53)
[2025-01-21] MEDS: LACT. RINGERS/OXYTOCIN 20UNITS 500 ML IV ONE ×2 (07:57→07:58)
--- NOTE | 2025-01-21 08:04 | LDN2 ---
Labor and Delivery Note Date 01/21/25 Age 29 2 Para 1 EDC 01/21/2025 EGA 40w0d Diagnosis Term , delivered Secondary: A1GDM Vaginal Delivery: VTX Vacuum Assisted: No Placenta: Spontaneous Sex: Female Weight 3690g 8 lbs, 2 oz Apgars 8/9 Nuchal Cord Transected: No Amniotic Fluid: Clear Anesthesia epidural Episiotomy: No Extension: Yes (2nd degree perineal laceration. bilateral labial, repaired L labial) Labs Blood Bank 01/20/25 20:24: Blood Type O POSITIVE Comments/Significant Med Derek At 0715 this 29yo now delivered a viable Female infant by w/ APGARS 8/ 9. [place]. Infant placed skin to skin on pts chest. Cord clamped and cut after pulsation ceased. Cord blood sent. Intact 3-vessel cord and intact placenta ([place]), delivered spontaneously Pitocin IV bolus started. Placenta sent to pathology. Patient had epidural and pain was well managed Cervix inspected and intact. Second degree perineal laceration present which was repaired with 3-0 vicryl suture in the usual fashion. Small bilateral labial lacerations noted. Repaired L labial. Rectal mucosa and sphincter intact. Fundus at U, firm, midline, and light lochia. Straight catheter for 200 mL of clear urine. QBL 300ml. VSS. Count correct x2. Patient to care and baby to couplet care, both stable. Visit Coding OBGYN Date of Service: Jan 21, 2025 Billing Provider: FLAVIO SANTILLAN CNM WEIGHT LOSS SALES CONSULTANT Common Visit Codes: [id number] INP/OBS CARE(HIGH) WEIGHT LOSS SALES CONSULTANT Procedure Codes: [id number] DELIVERY ONLY FLAVIO SANTILLAN CNM Jan 21, 2025 08:04
[2025-01-21] MEDS ORDERED: ACETAMINOPHEN 325 MG TAB PO PRN (08:15)
[2025-01-21] MEDS ORDERED: ONDANSETRON ODT 4 MG TAB PO PRN (08:15)
[2025-01-21 15:00] VITALS: BP 119/67; PULSE 90; RESP 18; TEMP 97.8; O2SAT 99
[2025-01-21 18:46] VITALS: BP 124/70; PULSE 90; RESP 18; TEMP 97.9; O2SAT 99
[2025-01-21] MEDS: IBUPROFEN 600 MG TAB PO PRN (22:10)
[2025-01-21 22:14] VITALS: BP 124/70; PULSE 90; RESP 18; TEMP 97.9; O2SAT 99
[2025-01-21 23:15] VITALS: BP 115/67; PULSE 102; RESP 18; TEMP 98.5; O2SAT 99
[2025-01-22 03:15] VITALS: BP 97/53; PULSE 73; RESP 16; TEMP 98.3; O2SAT 100
[2025-01-22 06:30] VITALS: BP 102/60; PULSE 103; RESP 18; TEMP 97.9; O2SAT 98
--- NOTE | 2025-01-22 06:40 | DVHPN2 ---
Progress Note Date Seen: Jan 22, 2025 Subjective S: S: Lochia minimal Tolerating regular diet well. Ambulating and voiding well w/o feeling lightheaded or dizzy. Passing flatus but no BM yet. Breast feeding. Contraceptive plan: Male Condoms Desires and requests to be discharged home today vital signs Vital Sign Date Time Temp Pulse Resp B/P (MAP) Pulse Ox O2 Delivery O2 Flow Rate FiO2 01/22/25 03:15 98.3 73 16 97/53 (68) 100 98.3 01/21/25 18:42 Room Air Total Intake and Output 01/21/25 01/21/25 01/22/25 15:00 23:00 07:00 Output Total 1400 ml 1200 ml Balance -1400 ml -1200 ml medications Current Medications Medications Dose Ordered Sig/David Route Start Time Stop Time Status Last Admin Dose Admin Lactated Ringer's 1,000 ml @ 125 mls/hr Q8H IV 01/20/25 20:00 01/21/25 05:09 125 MLS/HR Nalbuphine HCl 10 mg Q4HP PRN IV 01/20/25 20:00 Cancel Witch Ladonna 1 pad PRN PRN TOP 01/20/25 20:00 01/21/25 18:31 1 PAD Sodium Lauryl Sulfate 240 ml PRN PRN TOP 01/20/25 20:00 01/20/25 23:02 240 ML Benzocaine 1 applic PRN PRN TOP 01/20/25 20:00 01/20/25 23:01 1 APPLIC Lidocaine HCl 20 ml ONCE PRN IJ 01/20/25 20:00 Terbutaline Sulfate 0.25 mg ONCE PRN SC 01/21/25 00:45 Cancel Ibuprofen 600 mg Q6HP PRN PO 01/21/25 08:15 01/22/25 04:04 600 MG Acetaminophen 650 mg Q4HP PRN PO 01/21/25 08:15 Ondansetron HCl 4 mg Q4HPRN PRN PO 01/21/25 08:15 laboratory and microbiology Laboratory Tests 01/20/25 20:24 Test 01/20/25 20:24 Range/Units Serum Glucose 81 74-106 mg/dL Objective O: A&O x3 NAD. Afebrile, VSS Chest: heart and lung sounds normal. Breasts: Nipples intact w/o cracks or soreness Abdomen: normal BS, soft, non-tender, no rebound or guarding, fundus firm @ U- 2, lochia minimal Perineum:- no edema, or erythema, laceration site with sutures intact, edges in good approximation. Extremities: no edema or tenderness Lochia - minimal Assessment/Plan 29yo now ppd#1 s/p doing well. Blood Type: O Rh: Positive Breast feeding and Formula feeding Rubella Immune Pain control with oral medications Bowel regimen: Increase fluid intake and fiber in diet, Laxative PRN PP BCM Plan: Male Condoms Discharge plan: May discharge home later today if condition remains stable Plan discussed with: Patient, Spouse Visit Coding OBGYN Date of Service: Jan 22, 2025 Billing Provider: MONICA SEGUNDO CNM JAVA PROGRAMMING PROFESSOR Common Visit Codes: [id number] INP/OBS CARE(HIGH) MONICA SEGUNDO CNM Jan 22, 2025 06:40
--- NOTE | 2025-01-22 06:58 | DVHDS2 ---
Discharge Summary Date of Admission Jan 20, 2025 at 19:50 Date of Discharge: Jan 22, 2025 Admitting Diagnosis IUP at 39w 6d GDMA1 Early Labor Labs/Diagnostic Data: Laboratory Results Test 01/20/25 20:24 01/20/25 18:49 01/20/25 18:24 White Blood Count 9.2 10^3/uL (4.4-10.8) Red Blood Count 3.77 10^6/uL (4.0-5.20) Hemoglobin 11.2 g/dL (12.2-16.2) Hematocrit 32.7 % (36.0-46.0) Mean Corpuscular Volume 86.7 fL (80.0-100.0) Mean Corpuscular Hemoglobin 29.8 pg (28.0-32.0) Mean Corpuscular Hemoglobin Concent 34.4 g/dL (32.0-36.0) Red Cell Distribution Width 14.1 % (11.8-14.3) Platelet Count 155 10^3/uL (140-450) Mean Platelet Volume 11.2 fL (6.9-10.8) Neutrophils (%) (Auto) 82.3 % (37.0-80.0) Lymphocytes (%) (Auto) 12.4 % (10.0-50.0) Monocytes (%) (Auto) 4.7 % (0.0-12.0) Eosinophils (%) (Auto) 0.4 % (0.0-7.0) Basophils (%) (Auto) 0.2 % (0.0-2.0) Neutrophils # (Auto) 7.6 10 ^3/uL (1.6-8.6) Lymphocytes # (Auto) 1.1 10 ^3/uL (0.4-5.4) Monocytes # (Auto) 0.4 10 ^3/uL (0-1.3) Eosinophils # (Auto) 0 10 ^3/uL (0-0.8) Basophils # (Auto) 0 10 ^3/uL (0-0.2) Nucleated Red Blood Cells 0.1 % Prothrombin Time 9.3 sec (9.3-11.8) Prothrombin Time INR 0.86 (0.9-1.15) Activated Partial Thromboplast Time 24.5 SEC (24.5-34.5) Sodium Level 136 mmol/L (136-145) Potassium Level 3.7 mmol/L (3.5-5.1) Chloride Level 103 mmol/L (98-107) Carbon Dioxide Level 24 mmol/L (20-31) Anion Gap 9 (5-15) Blood Urea Nitrogen 9 mg/dL (9-23) Creatinine 0.69 mg/dL (0.550-1.02) Glomerular Filtration Rate Calc 121 mL/min (>90) BUN/Creatinine Ratio 13.0 (10.0-20.0) Serum Glucose 81 mg/dL (74-106) Calcium Level 9.0 mg/dL (8.7-10.4) Total Bilirubin 0.3 mg/dL (0.2-1.0) Aspartate Amino Transferase (AST) 23 U/L (13-40) Alanine Aminotransferase (ALT) 20 U/L (7-40) Alkaline Phosphatase 216 U/L (46-116) Total Protein 6.3 g/dL (5.7-8.2) Albumin 3.8 g/dL (3.2-4.8) Treponema pallidum Antibody Non-reactive (Negative) Urine Color Light-yellow (Yellow) Urine Clarity Clear (Clear) Urine pH 6.0 (5.0-9.0) Urine Specific [place] 1.016 (1.001-1.035) Urine Protein Negative (Negative) Urine Ketones Negative (Negative) Urine Blood Negative /uL (Negative) Urine Nitrite Negative (Negative) Urine Bilirubin Negative (Negative) Urine Urobilinogen Normal mg/dL (Negative) Urine Leukocyte Esterase Negative /uL (Negative) Urine RBC 1 /hpf (0 - 4) Urine Microscopic WBC < 1 /HPF (0-5) Urine Squamous Epithelial Cells Few /hpf (<5) Urine Bacteria Few /hpf (None Seen) Urine Mucus Few (None Seen) Urine Glucose Normal mg/dL (Normal) Urine Opiates Screen Neg (NEGATIVE) Urine Fentanyl Screen Neg (NEGATIVE) Urine Barbiturates Screen Neg (NEGATIVE) Urine Phencyclidine Screen Neg (NEGATIVE) Urine Amphetamines Screen Neg (NEGATIVE) Urine Benzodiazepines Screen Neg (NEGATIVE) Urine Cocaine Screen Neg (NEGATIVE) Urine Cannabinoids Screen Neg (NEGATIVE) POC Glucose 119 mg/dl (70-106) Other Laboratory Tests 01/20/25 20:24 Brief Hx & Hospital Course: Admitted on 01/20/25 at 39w 6d EGA for labor, had GDMA1. She had an uneventful labor, got labor epidural for pain relief. She progressed to 2nd stage of labor and had a over a2nd degree perineal and left labial laceration. (See Delivery Note for details). Normal course; meeting milestones w/o any problem or complications. VSS, ambulation well and bonding well with infant. Operations or Procedures Normal Spontaneous Vaginal Delivery at term Repair of Perineal and left labial Laceration Condition at Discharge: Good Final Diagnosis/Problems List SAME Term - Delivered Discharge Disposition: Home Discharge Instruct/Medications Diet: Regular Diet comment: Routine regular diet rich in fiber, protein, iron and vitamin C with adequate fluid intake Activity: No Restrictions, As Tolerated Activity comment: Unrestricted. Advance as tolerated. Balance activities with rest periods No heavy lifting, pushing or straining. Pelvic rest x 6weeks Follow Up/Referral: self care instructions given. emergency signs and symptoms including but not limited to pre-eclampsia precautions and signs of infection, PPH & of PPD reviewed with patient. Follow up with OB Provider in 1 week Medications: Ibuprofen 600mg every 6 hours as needed for pain. Continue Vitamin Scheduled Docusate Sodium (Colace), 1 CAP PO BID Vit W/ Ferrous Fumara ( One Daily), 1 TAB PO DAILY, (Reported) Scheduled PRN Ibuprofen (Ibuprofen), 1 TAB PO Q6HPRN PRN Discharge Statement: self care instructions given. emergency signs and symptoms including but not limited to pre-eclampsia precautions and signs of infection, PPH & of PPD reviewed with patient. Follow up with OB Provider in one (1) week "Patient was advised to return to the ER or call 911 if any headaches, dizziness, shortness of breath, chest pain, abdominal pain, bleeding, fevers, or worsening of medical condition. Patient was counseled about treatment plan, medications, possible side effects, patientverbalized understanding. All questions were answered to the best of my ability. This discharge took greater then 30 minutes in planning, reviewing documentation, counseling the patient, and discussing with other team members." ASSESSMENT ASSESSMENT Hospital Course Admitted on 01/20/25 at 39w 6d EGA for labor, had GDMA1. She had an uneventful labor, got labor epidural for pain relief. She progressed to 2nd stage of labor and had a over a2nd degree perineal and left labial laceration. (See Delivery Note for details). Normal course; meeting milestones w/o any problem or complications. VSS, ambulation well and bonding well with . Assessment Term , Delivered Visit Coding OBGYN Date of Service: Jan 22, 2025 Billing Provider: MONICA SEGUNDO CNM DIRECTOR OF COUNSELING Common Visit Codes: [id number] INP/OBS CARE(HIGH), 06506-NBJ/OBS DISCH DAY <30MIN MONICA SEGUNDO CNM Jan 22, 2025 06:58
[2025-01-22 11:30] VITALS: BP 108/70; PULSE 89; RESP 18; TEMP 98.2; O2SAT 98
[2025-01-22 12:30] VITALS: BP 108/68; PULSE 90; RESP 18; TEMP 98.4; O2SAT 98
== END 2025-01-22 12:30 | disposition home or self-care (01) | DRG 560 ==
LOC: UNDOADMOB 18:02 → LDRP 18:02 → OBSVTOIN 19:47 → INTOOBSV 19:47 → LDRP 19:50 → OBSVTOIN 19:50
PROVIDERS: ADMIT Obstetrics & Gynecology; ATTEND Obstetrics & Gynecology
PROC: 10E0XZZ Delivery of Products of Conception, External Approach (ICD-10-PCS; principal; 2025-01-21)
PROC: 0KQM0ZZ Repair Perineum Muscle, Open Approach (ICD-10-PCS; 2025-01-21)
PROC: 3E0R3BZ Introduction of Anesthetic Agent into Spinal Canal, Percutaneous Approach (ICD-10-PCS; 2025-01-21)
PROC: 00HU33Z Insertion of Infusion Device into Spinal Canal, Percutaneous Approach (ICD-10-PCS; 2025-01-21)
DX: O24.420 Gestational diabetes mellitus in childbirth, diet controlled (principal); Z37.0 Single live birth; O70.1 Second degree perineal laceration during delivery; Z3A.39 39 weeks gestation of pregnancy
CPT/HCPCS: 36415; 59025; 59409; 62282; 80053; 80307; 81001; 81002; 82948; 82962; 85025; 85610; 85730; 86780; 86850; 86900; 86901; 94760; 94762; 96360; 96361; 96365; 96366; 96374; G0378; J2590

== ENCOUNTER 2025-02-13 14:11 | Inpatient (IN) | payer MEDICAID ==
[~2025-02-13] VITALS: Ht 165.1 cm; Wt 90.5 kg
[~2025-02-13 14:11] MED LIST changes: +DOCU-94 PO; +IBUP-1454 PO
[2025-02-13] MEDS: ACETAMINOPHEN 325 MG TAB PO ONE (14:23)
--- NOTE | 2025-02-13 15:28 | ED.PDOC ---
History of Present Illness(SKN HPI Comments 29-year-old female presents here with left breast pain that she has had for 2 weeks worse to last couple of days. She states she is currently pumping breast milk as she has a baby x3 weeks ago. It was a vaginal with no complications. She believe she has a clogged milk duct and states she has tried everything to unclog it but nothing has worked. She states last week she is having some fever or chills. She is concerned she may have mastitis now. She is also taking sunflowwer lechitan which she just started a few days ago No yesenia sea no vomiting or diarrhea. Chief Complaint: Breast pain Time Seen by MD: 15:18 History of Present Illness: Nurses Notes, Medications, Allergies Allergies: Coded Allergies: NO KNOWN ALLERGIES (Unverified , 01/18/25) Home Meds Active Scripts Docusate Sodium (Colace) 100 Mg Cap, 1 CAP PO BID, #60 CAP 2 Refills Prov:ALBERTORFLAVIO CN 01/21/25 Ibuprofen (Ibuprofen) 600 Mg Tab, 1 TAB PO Q6HPRN PRN for 20 Days, #80 TAB Prov:ALBERTORFLAVIO CN 01/21/25 Reported Medications Vit W/ Ferrous Fumara ( One Daily) Daily Tab, 1 TAB PO DAILY, #90 TAB 3 Refills 11/26/24 Information Source: Patient Mode of Arrival: Ambulatory Severity: Moderate Timing: Weeks Duration: Since onset Prehospital treatment: None Location: Other (LEFT BREAST) Mechanism: Spontaneous Onset Object: None Condition of Object: None Retained Foreign Body: No Wound Type: None Immunization Status of Animal: NA History of: None Associated Signs and Symptoms: Redness, Swelling Past Medical History PAST MEDICAL HISTORY: Denies Surgical History: Denies all surgeries WOOD CABINETMAKER History: Denies all WOOD CABINETMAKER Hx Family History Family History: Unknown Social History Smoker: Non-Smoker Alcohol: Denies ETOH Use Drugs: Denies Drug Use Lives In: Home Constitutional: denies: chills, diaphoresis, fatigue, fever, malaise, sweats, weakness, others EENTM: denies: blurred vision, double vision, ear bleeding, ear discharge, ear drainage, ear pain, ear ringing, eye pain, eye redness, hearing loss, mouth pain, mouth swelling, nasal discharge, nose bleeding, nose congestion, nose pain, photophobia, tearing, throat pain, throat swelling, voice changes, others Respiratory: denies: cough, hemoptysis, orthopnea, SOB at rest, shortness of breath, SOB with excertion, stridor, wheezing, others Cardiovascular: denies: chest pain, dizzy spells, diaphoresis, Dyspnea on exertion, edema, irregular heart beat, left arm pain, lightheadedness, palpi tations, PND, syncope, others Gastrointestinal: denies: abdomen distended, abdominal pain, blood streaked bowels, constipated, diarrhea, dysphagia, difficulty swallowing, hematemesis, melena, nausea, poor appetite, poor fluid intake, rectal bleeding, rectal pain, vomiting, others Genitourinary: denies: abnormal vagina bleeding, burning, dyspareunia, dysuria, flank pain, frequency, hematuria, incontinence, pain, , vagina discharge, urgency, others Neurological: denies: dizziness, fainting, headache, left sided numbness, left sided weakness, numbness, paresthesia, pre-existing deficit, right sided numbness, right sided weakness, seizure, speech problems, tingling, tremors, weakness, others Musculoskeletal: denies: back pain, gout, joint pain, joint swelling, muscle pain, muscle stiffness, neck pain, others Integumetry: reports: others (LEFT BREAST SWELLING, REDNESS, PAIN); denies: bruises, change in color, change in hair/nails, dryness, laceration, lesions, lumps, rash, wounds Allergic/Immunocompromised: denies: Difficulty Healing, Frequent Infections, Hives, Itching, others Hematologic/Lymphatic: denies: anemia, blood clots, easy bleeding, easy bruising, swollen glands, others Endocrine: denies: excessive hunger, excessive sweating, excessive thirst, excessive urination, flushing, intolerance to cold, intolerance to heat, unexplained weight gain, unexplained weight loss, others Psychiatric: denies: anxiety, bipolar disorder, depression, hopeless, panic disorder, schizophrenia, sleepless, suicidal, others All Other Systems: Reviewed and Negative Physical Exam General Appearance: Moderate Distress, Normal, Other (In tears) HEENT: Normal ENT Inspection, Pharynx Normal Neck: Full Range of Motion, Non-Tender, Normal, Normal Inspection Respiratory: Chest Non-Tender, Lungs Clear, No Accessory Muscle Use, No Respiratory Distress, Normal Breath Sounds Cardiovascular: No Edema, No Murmur, No Gallop, Normal Peripheral Pulses, Regular Rate/Rhythm Breast Exam: (L) Tenderness (Left breast enlarged diffusely tender throughout and hard very minimal erythema surrounding the medial aspect), Deferred Gastrointestinal: No Organomegaly, Non Tender, No Pulsatile Mass, Normal Bowel Sounds, Soft Genitalia: Deferred Pelvic: Deferred Rectal: Deferred Extremities: No calf tenderness, Normal capillary refill, Normal inspection, Normal range of motion, Non-tender, No pedal edema Musculoskeletal : Apperance: Normal Neurologic: Alert, lead java j2ee developer II-XII nml as Tested, No Motor Deficits, Normal Affect, Normal Mood, No Sensory Deficits Cerebellar Function: Normal Reflexes: Normal Skin: Dry, Normal Color, Warm Lymphatic: No Adenopathy Was a procedure done? Was a procedure done?: No Differential Diagnosis (INTG) Differential Diagnosis: N/A Differential Diagnosis: Cellulitis, Other (MASTITIS, clogged milk duct, abscess) Differential Diagnosis: N/A Abscess: N/A Differential Diagnosis: Other X-Ray, Labs, Meds, VS Vital Signs Date Time Temp Pulse Resp B/P (MAP) Pulse Ox O2 Delivery O2 Flow Rate FiO2 02/13/25 16:40 99.2 67 16 88/59 (69) 95 99.2 02/13/25 14:23 101.8 02/13/25 14:13 102.5 148 18 113/74 98 102.5 Lab Test 02/13/25 16:30 02/13/25 16:02 Range/Units Lactic Acid Level 0.9 0.4-2.0 mmol/L White Blood Count 21.1 H 4.4-10.8 10^3/uL Red Blood Count 3.85 L 4.0-5.20 10^6/uL Hemoglobin 10.9 L 12.2-16.2 g/dL Hematocrit 33.1 L 36.0-46.0 % Mean Corpuscular Volume 85.8 80.0-100.0 fL Mean Corpuscular Hemoglobin 28.2 28.0-32.0 pg Mean Corpuscular Hemoglobin Concent 32.9 32.0-36.0 g/dL Red Cell Distribution Width 14.1 11.8-14.3 % Platelet Count 276 140-450 10^3/uL Mean Platelet Volume 10.1 6.9-10.8 fL Neutrophils (%) (Auto) 90.6 H 37.0-80.0 % Lymphocytes (%) (Auto) 4.4 L 10.0-50.0 % Monocytes (%) (Auto) 4.4 0.0-12.0 % Eosinophils (%) (Auto) 0.1 0.0-7.0 % Basophils (%) (Auto) 0.5 0.0-2.0 % Neutrophils # (Auto) 19.1 H 1.6-8.6 10 ^3/uL Lymphocytes # (Auto) 0.9 0.4-5.4 10 ^3/uL Monocytes # (Auto) 0.9 0-1.3 10 ^3/uL Eosinophils # (Auto) 0 0-0.8 10 ^3/uL Basophils # (Auto) 0.1 0-0.2 10 ^3/uL Nucleated Red Blood Cells 0.1 % Sodium Level 137 136-145 mmol/L Potassium Level 4.1 3.5-5.1 mmol/L Chloride Level 101 98-107 mmol/L Carbon Dioxide Level 24 20-31 mmol/L Anion Gap 12 5-15 Blood Urea Nitrogen 9 9-23 mg/dL Creatinine 0.79 0.550-1.02 mg/dL Glomerular Filtration Rate Calc 104 >90 mL/min BUN/Creatinine Ratio 11.4 10.0-20.0 Serum Glucose 121 H 74-106 mg/dL Calcium Level 9.3 8.7-10.4 mg/dL Current Medications Medications (Trade) Dose Ordered Sig/David Route Start Time Stop Time Status Last Admin Acetaminophen (Tylenol Tablet) 650 mg ONCE ONCE PO 02/13/25 14:30 02/13/25 14:31 DC 02/13/25 14:23 Sodium Chloride 1,700 ml @ 1,700 mls/hr ONCE ONCE IV 02/13/25 16:15 02/13/25 17:14 DC 02/13/25 17:22 Ceftriaxone Sodium 50 ml @ 100 mls/hr ONCE ONCE IV 02/13/25 16:15 02/13/25 16:44 DC 02/13/25 17:22 Ketorolac Tromethamine (Toradol Injection) 30 mg ONCE ONCE IV 02/13/25 16:15 02/13/25 16:16 DC 02/13/25 17:23 29-year-old female presents here with a left breast pain. She has had what she believes the clock milk ducts x2 weeks but last couple of days has been extremely painful. She believes she may have mastitis. On my examination the breast is hard and tender to palpation throughout. Vitals demonstrate a fever, she was tachycardic at 148 and ultrasound of the breast to rule out abscess... She is in tears at this time. I have ordered CBC and BMP an ultrasound of the breast to rule out abscess. I have ordered Toradol for pain. CBC demonstrates a leukocytosis of 21, BMP with a normal limits. Lactic acid within normal limits. Ultrasound of the breast has been done however we still pending report. At this time her blood pressure has dropped to 88 systolic. I spoke to nursing staff and they have started her IV fluids. I spoke with the patient she is agreeable to inpatient admission. Patient has been started on ceftriaxone IV. Hospitalist team has been contacted for admission Time of 1ST Reevaluation: 15:48 Reevaluation 1ST: Unchanged Time of 2ND Reevaluation: 17:31 Reevaluation 2ND: Worsened Patient Education/Counseling: Diagnosis, Treatment Family Education/Counseling: No Family Present SEPSIS Sepsis Screen Date sepsis recognized/suspect: Feb 13, 2025 Time Sepsis recognized/suspect: 1414 Recent Procedure: No On Antibiotic Therapy: Yes Respiratory Rate >20: No Heart Rate >90: Yes Temp<36 C (96.8 F) or >38.3 C: Yes SBP <90 or MAP <65 mmHG: Yes New Acute Mental Status Change: No Is the patient on CPAP, BIPAP,: No IV fluid challenge completed?: No Physician Orders L Breast Ultrasound (02/13/25 15:51) Blood Culture (02/13/25 16:01) Urinalysis (02/13/25 17:34) Test, Urine (02/13/25 17:34) Vancomycin 1gm/250ml Kit (02/13/25 17:45) Piperacillin-Tazob 3.375gm (Zosyn 3.375g (02/13/25 17:45) Vital Signs Date Time Temp Pulse Resp B/P (MAP) Pulse Ox O2 Delivery O2 Flow Rate FiO2 02/13/25 16:40 99.2 67 16 88/59 (69) 95 99.2 02/13/25 14:23 101.8 02/13/25 14:13 102.5 148 18 113/74 98 102.5 Laboratory Tests Test 02/13/25 16:02 02/13/25 16:30 White Blood Count 21.1 10^3/uL (4.4-10.8) H Lactic Acid Level 0.9 mmol/L (0.4-2.0) Medications Medications Dose Ordered Sig/David Route Start Time Stop Time Status Last Admin Dose Admin Acetaminophen 650 mg ONCE ONCE PO 02/13/25 14:30 02/13/25 14:31 DC 02/13/25 14:23 Ceftriaxone Sodium 50 ml @ 100 mls/hr ONCE ONCE IV 02/13/25 16:15 02/13/25 16:44 DC 02/13/25 17:22 Ketorolac Tromethamine 30 mg ONCE ONCE IV 02/13/25 16:15 02/13/25 16:16 DC 02/13/25 17:23 Sodium Chloride 1,700 ml @ 1,700 mls/hr ONCE ONCE IV 02/13/25 16:15 02/13/25 17:14 DC 02/13/25 17:22 Departure 1 Departure Time of Disposition: 17:48 Impression: Primary Impression: Mastitis Additional Impression: Sepsis Qualified Codes: A41.9 - Sepsis, unspecified organism; R65.20 - Severe sepsis without septic shock Disposition: ADMITTED INPATIENT Condition: Critical Critical Care Note Critical Care Time?: Yes (45 min-critical care time only) Critical care comment: Time spent evaluating the patient, reviewing her lab work, speaking to line inspector, speaking to the patient, speaking to nursing staff, multiple re-evaluations of the patient. Concern for immediate deterioration however circulatory system Stability Stability form required: No Heart Score Heart Score: Heart Score Response (Comments) Value History N/A 0 EKG N/A 0 Age N/A 0 Risk Factors N/A 0 Troponin N/A 0 Total 0 I personally scribed for BHARGAV MUNOZ MD ([email or web address]) on 02/13/25 at 15:28. Electronically submitted by Kelly Dwyer ([email or web address]). I personally scribed for BHARGAV MUNOZ MD ([email or web address]) on 02/13/25 at 16:24. Electronically submitted by Kelly Dwyer ([email or web address]). I personally scribed for BHARGAV MUNOZ MD ([email or web address]) on 02/13/25 at 16:25. Electronically submitted by Kelly Dwyer ([email or web address]). I personally scribed for BHARGAV MUNOZ MD ([email or web address]) on 02/13/25 at 16:25. Electronically submitted by Kelly Dwyer ([email or web address]). I personally scribed for BHARGAV MUNOZ MD ([email or web address]) on 02/13/25 at 16:25. Electronically submitted by Kelly Dwyer ([email or web address]). BHARGAV MUNOZ MD Feb 13, 2025 15:28
[2025-02-13] MEDS ORDERED: KETOROLAC TROMETH 60MG/2ML VIAL IM ONE (16:00)
[2025-02-13 16:21] LABS: Chloride 101 mmol/L (98-107); Hematocrit 33.1 % (36.0-46.0); Hemoglobin 10.9 g/dL (12.2-16.2); Mean Corpuscular Hemoglobin 28.2 pg (28.0-32.0); Mean Corpuscular Volume 85.8 fL (80.0-100.0); Nucleated Red Blood Cells % 0.1 %; Potassium 4.1 mmol/L (3.5-5.1); Sodium 137 mmol/L (136-145)
[2025-02-13 16:22] LABS: Anion Gap 12 (5-15); Calcium 9.3 mg/dL (8.7-10.4); Carbon Dioxide 24 mmol/L (20-31)
[2025-02-13 16:27] LABS: BUN/Creatinine Ratio 11.4 (10.0-20.0)
[2025-02-13 16:39] LABS: Blood Urea Nitrogen 9 mg/dL (9-23); Glucose 121 mg/dL (74-106)
[2025-02-13] MEDS: SODIUM CHLORIDE 0.9% 1,700 ML IV ONE (16:45)
[2025-02-13] MEDS: cefTRIAXone 1GM/50ML D5W 50 ML IV ONE (16:46)
[2025-02-13] MEDS: KETOROLAC TROMETH 30 MG/ML 1ML VIAL IV ONE (16:46)
--- NOTE | 2025-02-13 17:58 | DVH ---
US OF THE left BREAST INDICATION: Rule out abscess TECHNIQUE: All 4 quadrants, subareolar region and axillary region of the left breast were evaluated with ultrasound COMPARISON: None FINDINGS: No solid or suspicious masses. No areas of architectural distortion. No malignant adenopathy. Heterogeneous diffuse phlegmonous type change throughout the left breast. IMPRESSION: Probably benign heterogeneous infectious phlegmonous type change throughout the left breast without d iscrete drainable fluid collection or abscess. Recommend repeat ultrasound after treatment to ensure complete resolution. ACR Bi Rads Category:Category 3
--- NOTE | 2025-02-13 18:11 | DVHHP2 ---
Admitting Diagnosis: Left breast pain History of Present Illness 29-year-old female presents here with left breast pain that she has had for 2 weeks worse to last couple of days. She states she is currently pumping breast milk as she has a baby x3 weeks ago. It was a vaginal with no complications. She believe she has a clogged milk duct and states she has tried everything to unclog it but nothing has worked. She states last week she is having some fever or chills. She is concerned she may have mastitis now. She is also taking sunflowwer lechitan which she just started a few days ago No nausea no vomiting or diarrhea. PAST MEDICAL HISTORY: Denies Surgical History: Denies all surgeries VETERINARY MICROBIOLOGIST History: Denies all VETERINARY MICROBIOLOGIST Hx Family History Family History: Unknown Social History Smoker: Non-Smoker Alcohol: Denies ETOH Use Drugs: Denies Drug Use Lives In: Home Allergies: Coded Allergies: NO KNOWN ALLERGIES (Unverified , 01/18/25) Home Meds Active Scripts Docusate Sodium (Colace) 100 Mg Cap, 1 CAP PO BID, #60 CAP 2 Refills Prov:FLAVIO SANTILLAN CNM 01/21/25 Ibuprofen (Ibuprofen) 600 Mg Tab, 1 TAB PO Q6HPRN PRN for 20 Days, #80 TAB Prov:FLAVIO SANTILLAN CNM 01/21/25 Reported Medications Vit W/ Ferrous Fumara ( One Daily) Daily Tab, 1 TAB PO DAILY, #90 TAB 3 Refills 11/26/24 Current Medications Current Medications Medications (Trade) Dose Ordered Sig/David Route PRN Reason Start Time Stop Time Status Last Admin Sodium Chloride (Saline Lock Ns) 10 ml Q8HR IV 02/13/25 22:00 UNV Docusate Sodium (Colace Capsule) 100 mg BIDPRN PRN PO FOR CONSTIPATION 02/13/25 21:00 UNV Acetaminophen (Tylenol Tablet) 650 mg Q6HP PRN PO PAIN SCALE 1-3 OR TEMP>100.4 02/13/25 21:00 UNV Ondansetron HCl (Zofran) 4 mg Q4HP PRN IV NAUSEA / VOMITING 02/13/25 21:00 UNV Vancomycin HCl 0 ml @ 0 mls/hr UD IV 02/13/25 21:00 UNV Piperacillin Sod/ Tazobactam Sod 100 ml @ 25 mls/hr Q8HR IV 02/13/25 22:00 UNV Vital Signs Vital Signs Date Time Temp Pulse Resp B/P (MAP) Pulse Ox O2 Delivery O2 Flow Rate FiO2 02/13/25 18:05 99.4 118 16 93/56 (68) 98 99.4 Physical Exam Generally-21 years old woman, well nourished well developed. Mild distress HEENT-atraumatic normocephalic Heart-sinus tachycardic Lungs clear to auscultate bilaterally Breasts-left breaths above the nipple erythema with induration Abdomen soft nontender nondistended Musculoskeletal-no edema cyanosis Neuro-AO x3, no focal deficits SEPSIS Sepsis Screen Date sepsis recognized/suspect: Feb 13, 2025 Time Sepsis recognized/suspect: 1414 Recent Procedure: No On Antibiotic Therapy: Yes Respiratory Rate >20: No Heart Rate >90: Yes Temp<36 C (96.8 F) or >38.3 C: Yes SBP <90 or MAP <65 mmHG: Yes New Acute Mental Status Change: No Is the patient on CPAP, BIPAP,: No IV fluid challenge completed?: No Physician Orders L Breast Ultrasound (02/13/25 15:51) Blood Culture (02/13/25 16:01) Urinalysis (02/13/25 17:34) Test, Urine (02/13/25 17:34) Chest With Contrast (02/13/25 20:52) C-Reactive Protein (02/13/25 20:52) Erythrocyte Sedimentation Rate (02/13/25 20:52) Regular Diet (02/14/25 Breakfast) Npo (Nothing By Mouth) Diet (02/14/25 Breakfast) Prothrombin Time W/ Inr (02/13/25 20:52) * Surgical Consult (02/13/25 ) Admit (02/13/25 20:52) Code Status (02/13/25 20:52) Vital Signs .PER UNIT PROTOCOL (02/13/25 20:52) Review Orders With Adm. (02/13/25 20:52) Encourage Activity As Tolerate (02/13/25 20:52) Sodium Chloride Lock (Saline Lock Ns) (02/13/25 22:00) Docusate Sodium Capsule (Colace Capsule) (02/13/25 21:00) Acetaminophen Tablet (Tylenol Tablet) (02/13/25 21:00) Notify Md Of Changes From Base (02/13/25 20:52) Advance Directive (02/13/25 20:52) Patient Condition (02/13/25 20:52) Allergies (02/13/25 20:52) Ondansetron Hcl (Zofran) (02/13/25 21:00) Vancomycin Per Pharmacy (02/13/25 21:00) Piperacillin-Tazob 3.375gm (Zosyn 3.375g (02/13/25 22:00) Vital Signs Date Time Temp Pulse Resp B/P (MAP) Pulse Ox O2 Delivery O2 Flow Rate FiO2 02/13/25 18:05 99.4 118 16 93/56 (68) 98 99.4 02/13/25 16:40 99.2 67 16 88/59 (69) 95 99.2 02/13/25 14:23 101.8 02/13/25 14:13 102.5 148 18 113/74 98 102.5 Laboratory Tests Test 02/13/25 16:02 02/13/25 16:30 White Blood Count 21.1 10^3/uL (4.4-10.8) H Lactic Acid Level 0.9 mmol/L (0.4-2.0) Medications Medications Dose Ordered Sig/David Route Start Time Stop Time Status Last Admin Dose Admin Acetaminophen 650 mg ONCE ONCE PO 02/13/25 14:30 02/13/25 14:31 DC 02/13/25 14:23 Ceftriaxone Sodium 50 ml @ 100 mls/hr ONCE ONCE IV 02/13/25 16:15 02/13/25 16:44 DC 02/13/25 17:22 Ketorolac Tromethamine 30 mg ONCE ONCE IV 02/13/25 16:15 02/13/25 16:16 DC 02/13/25 17:23 Piperacillin Sod/ Tazobactam Sod 100 ml @ 100 mls/hr ONCE ONCE IV 02/13/25 17:45 02/13/25 18:44 DC 02/13/25 19:57 Sodium Chloride 1,700 ml @ 1,700 mls/hr ONCE ONCE IV 02/13/25 16:15 02/13/25 17:14 DC 02/13/25 17:22 Vancomycin HCl 250 ml @ 250 mls/hr ONCE ONCE IV 02/13/25 17:45 02/13/25 18:44 DC 02/13/25 18:14 Results Labs Test 02/13/25 16:30 02/13/25 16:02 Range/Units Lactic Acid Level 0.9 0.4-2.0 mmol/L White Blood Count 21.1 H 4.4-10.8 10^3/uL Red Blood Count 3.85 L 4.0-5.20 10^6/uL Hemoglobin 10.9 L 12.2-16.2 g/dL Hematocrit 33.1 L 36.0-46.0 % Mean Corpuscular Volume 85.8 80.0-100.0 fL Mean Corpuscular Hemoglobin 28.2 28.0-32.0 pg Mean Corpuscular Hemoglobin Concent 32.9 32.0-36.0 g/dL Red Cell Distribution Width 14.1 11.8-14.3 % Platelet Count 276 140-450 10^3/uL Mean Platelet Volume 10.1 6.9-10.8 fL Neutrophils (%) (Auto) 90.6 H 37.0-80.0 % Lymphocytes (%) (Auto) 4.4 L 10.0-50.0 % Monocytes (%) (Auto) 4.4 0.0-12.0 % Eosinophils (%) (Auto) 0.1 0.0-7.0 % Basophils (%) (Auto) 0.5 0.0-2.0 % Neutrophils # (Auto) 19.1 H 1.6-8.6 10 ^3/uL Lymphocytes # (Auto) 0.9 0.4-5.4 10 ^3/uL Monocytes # (Auto) 0.9 0-1.3 10 ^3/uL Eosinophils # (Auto) 0 0-0.8 10 ^3/uL Basophils # (Auto) 0.1 0-0.2 10 ^3/uL Nucleated Red Blood Cells 0.1 % Sodium Level 137 136-145 mmol/L Potassium Level 4.1 3.5-5.1 mmol/L Chloride Level 101 98-107 mmol/L Carbon Dioxide Level 24 20-31 mmol/L Anion Gap 12 5-15 Blood Urea Nitrogen 9 9-23 mg/dL Creatinine 0.79 0.550-1.02 mg/dL Glomerular Filtration Rate Calc 104 >90 mL/min BUN/Creatinine Ratio 11.4 10.0-20.0 Serum Glucose 121 H 74-106 mg/dL Calcium Level 9.3 8.7-10.4 mg/dL Primary Diagnosis Left breast abscess Sepsis Plan Start vanc and Zosyn for broad-spectrum antibiotics Check blood culture Check CRP and procalcitonin Check CT chest with contrast to assess for severity and depth of abscess and cellulitis Surgery consult assess for I and D Check INR NPO after midnight Full code IV fluids Full code SCD for DVT prophylaxis No GI prophylaxis needed Plan discussed with: Patient Problems List: (1) Mastitis Status: Acute Date of Service: Feb 13, 2025 Billing Provider: SHIRLEY DAVIS MD Common Visit Codes: [id number] INP/OBS CARE (HIGH) SHIRLEY DAVIS MD Feb 13, 2025 18:11
[2025-02-13] MEDS: VANCOMYCIN 1GM/250ML KIT 250 ML IV ONE (18:14)
[2025-02-13] MEDS: PIPERACILLIN-TAZOB 3.375GM 100 ML IV ONE (19:57)
[2025-02-13] MEDS ORDERED: VANCOMYCIN PER PHARMACY 0 MG IV SCH (21:00)
[2025-02-13] MEDS ORDERED: DOCUSATE SOD 100 MG CAP PO PRN (21:00)
[2025-02-13] MEDS: IOHEXOL 300 MG/ML 100ML BOTTLE IJ ONE (21:03)
[2025-02-13 21:24] LABS: INR 1.07 (0.9-1.15); Prothrombin Time 11.3 sec (9.3-11.8)
--- NOTE | 2025-02-13 21:34 | DVH ---
EXAM: CT CHEST WITH CONTRAST History: left breast assess for abscess Comparison Study: None TECHNIQUE: A digital rn otolaryngology image was obtained. During the uneventful, intravenous administration of c ontrast material, multislice data acquisition was obtained through the chest. The data set was subseq uently reconstructed into axial, coronal, and sagittal images. Radiation Dose : CTDI vol 19.33 mGy, DLP 19.33 mGy*cm. Findings: Evaluation is degraded by respiratory motion. Lungs: The lungs are clear. Pleura: Unremarkable Heart/Great vessels: No cardiomegaly or pericardial effusion. The aorta is unremarkable. Mediastinum: Unremarkable. Soft tissues/Bones: There is mildly increased heterogeneous soft tissue density within the left breas t as compared to the contralateral side, though without clear drainable collection. There is skin thi ckening along the left anterior breast. Upper abdomen: The partially visualized upper abdomen is within normal limits. Impression: 1. There is increased heterogeneous soft tissue density within the left breast as compared to the con tralateral side, though without clear drainable collection. Infectious/inflammatory process cannot be excluded in the appropriate clinical setting. Mild left axillary adenopathy. Neoplastic etiologies cannot be excluded on the basis of this examination. Short interval follow-up ultrasound is suggested , with diagnostic mammography if clinically indicated.
[2025-02-13] MEDS: HYDROcodone-ACET 5/325MG TAB PO ONE (21:36)
[2025-02-13] MEDS: SODIUM CHLORIDE 0.9% 1,000 ML IV ONE (23:13)
[2025-02-13] MEDS: SODIUM CHLOR 0.9% PF (SALINE LOCK) 10ML VIAL/SYR IV SCH (23:13)
[2025-02-13] MEDS: PIPERACILLIN-TAZOB 3.375GM 100 ML IV SCH (23:14)
[2025-02-13] MEDS: MORPHINE SULFATE 4 MG/ML SYR/VIAL IV PRN (23:23)
[2025-02-14] VITALS (14 sets, daily range): BP systolic 76–100; BP diastolic 47–69; PULSE 89–112; RESP 16–21; TEMP 98.1–103; O2SAT 90–100
[2025-02-14] MEDS: ACETAMINOPHEN 325 MG TAB PO PRN (02:14)
[2025-02-14] MEDS: PANTOPRAZOLE 40 MG/10 ML VIAL INJ IV ONE (02:53)
[2025-02-14] MEDS: KETOROLAC TROMETH 30 MG/ML 1ML VIAL IV ONE (02:54)
[2025-02-14 03:34] LABS: Urine Protein, UAD 1+ (Negative)
[2025-02-14] MEDS: LACTATED RINGER'S 1,000 ML IV ONE (05:41)
[2025-02-14 08:08] LABS: Hematocrit 27.0 % (36.0-46.0); Hemoglobin 8.9 g/dL (12.2-16.2); Mean Corpuscular Hemoglobin 28.4 pg (28.0-32.0); Mean Corpuscular Volume 86.0 fL (80.0-100.0); Nucleated Red Blood Cells % 0.0 %
[2025-02-14 08:24] LABS: Albumin 3.7 g/dL (3.2-4.8); Anion Gap 9 (5-15); BUN/Creatinine Ratio 9.7 (10.0-20.0); Bilirubin, Total 0.5 mg/dL (0.2-1.0); Carbon Dioxide 25 mmol/L (20-31); Chloride 104 mmol/L (98-107); Glucose 101 mg/dL (74-106); Potassium 3.9 mmol/L (3.5-5.1); Sodium 138 mmol/L (136-145); Total Protein 6.4 g/dL (5.7-8.2)
[2025-02-14 08:27] LABS: Alanine Aminotransferase 45 U/L (7-40); Alkaline Phosphatase 121 U/L (46-116); Blood Urea Nitrogen 7 mg/dL (9-23); Calcium 8.3 mg/dL (8.7-10.4)
[2025-02-14] MEDS: LACTATED RINGER'S 1,000 ML IV SCH ×2 (09:32→17:30)
--- NOTE | 2025-02-14 10:47 | DVHINCON2 ---
Date of service: Feb 14, 2025 History of Present Illness 21-year-old female currently breast pumping now complaining of two week history of worsening left breast swelling and pain with fevers. Patient has been unable to pump in her left breast for past several days. Past Medical History None Past Surgical History None Family History: Patient reports no known family medical history. Family History Noncontributory Social History Denies alcohol, tobacco, IV drug use Allergies: Coded Allergies: NO KNOWN ALLERGIES (Unverified , 01/18/25) Home Meds Active Scripts Docusate Sodium (Colace) 100 Mg Cap, 1 CAP PO BID, #60 CAP 2 Refills Prov:LAKERRUBINATYN CNM 01/21/25 Ibuprofen (Ibuprofen) 600 Mg Tab, 1 TAB PO Q6HPRN PRN for 20 Days, #80 TAB Prov:LAKERRUBINAEMERITA CNM 01/21/25 Reported Medications Vit W/ Ferrous Fumara ( One Daily) Daily Tab, 1 TAB PO DAILY, #90 TAB 3 Refills 11/26/24 Current Medications Current Medications Medications (Trade) Dose Ordered Sig/David Route PRN Reason Start Time Stop Time Status Last Admin Sodium Chloride (Saline Lock Ns) 10 ml Q8HR IV 02/13/25 22:00 02/14/25 05:26 DC 02/13/25 23:13 Docusate Sodium (Colace Capsule) 100 mg BIDPRN PRN PO FOR CONSTIPATION 02/13/25 21:00 Acetaminophen (Tylenol Tablet) 650 mg Q6HP PRN PO PAIN SCALE 1-3 OR TEMP>100.4 02/13/25 21:00 02/14/25 02:14 Ondansetron HCl (Zofran) 4 mg Q4HP PRN IV NAUSEA / VOMITING 02/13/25 21:00 Vancomycin HCl 0 ml @ 0 mls/hr UD IV 02/13/25 21:00 Piperacillin Sod/ Tazobactam Sod 100 ml @ 25 mls/hr Q8HR IV 02/13/25 22:00 02/14/25 06:56 Morphine Sulfate 4 mg Q6HPRN PRN IV SEVERE PAIN (7-10 PAIN SCALE) 02/13/25 21:45 02/13/25 23:23 Pantoprazole Sodium (Protonix) 40 mg DAILY IV 02/14/25 10:00 Lactated Ringer's 1,000 ml @ 150 mls/hr Q6H40M IV 02/14/25 05:30 02/14/25 09:32 Vancomycin HCl 250 ml @ 250 mls/hr Q8H IV 02/14/25 09:00 Vital Signs Vital Signs Date Time Temp Pulse Resp B/P (MAP) Pulse Ox O2 Delivery O2 Flow Rate FiO2 02/14/25 09:00 101.3 112 16 88/52 (64) 95 101.3 02/14/25 04:00 Room Air* 0 21 Physical Exam GEN: Age-appropriate female in no acute distress. Alert. HEENT: Normocephalic atraumatic. Moist mucous membranes. Anicteric sclerae. CV: RRR Respiratory: CTAB ABD: Soft. Nontender. Breasts: There is significant induration and erythema of the left breast with tenderness to palpation. No nipple discharge. No obvious palpable left axillary lymph node. Left breast ultrasound: Probably benign heterogeneous infectious phlegmonous type change throughout the left breast without discrete drainable fluid abscess or collection. CT chest: Increased heterogeneous soft tissue density within the left breast compared to the lateral side without clear drainable collection. There was infectious/inflammatory process can not be excluded. Mild left axillary adenopathy. Labs/Diagnostic Data Labs Test 02/14/25 07:35 02/13/25 17:34 02/13/25 16:30 02/13/25 16:02 Range/Units White Blood Count 16.6 H 4.4-10.8 10^3/uL Red Blood Count 3.15 L 4.0-5.20 10^6/uL Hemoglobin 8.9 #L 12.2-16.2 g/dL Hematocrit 27.0 #L 36.0-46.0 % Mean Corpuscular Volume 86.0 80.0-100.0 fL Mean Corpuscular Hemoglobin 28.4 28.0-32.0 pg Mean Corpuscular Hemoglobin Concent 33.0 32.0-36.0 g/dL Red Cell Distribution Width 14.7 H 11.8-14.3 % Platelet Count 211 140-450 10^3/uL Mean Platelet Volume 10.4 6.9-10.8 fL Neutrophils (%) (Auto) 89.8 H 37.0-80.0 % Lymphocytes (%) (Auto) 5.7 L 10.0-50.0 % Monocytes (%) (Auto) 2.8 0.0-12.0 % Eosinophils (%) (Auto) 1.6 0.0-7.0 % Basophils (%) (Auto) 0.1 0.0-2.0 % Neutrophils # (Auto) 14.9 H 1.6-8.6 10 ^3/uL Lymphocytes # (Auto) 0.9 0.4-5.4 10 ^3/uL Monocytes # (Auto) 0.5 0-1.3 10 ^3/uL Eosinophils # (Auto) 0.3 0-0.8 10 ^3/uL Basophils # (Auto) 0 0-0.2 10 ^3/uL Nucleated Red Blood Cells 0.0 % Sodium Level 138 136-145 mmol/L Potassium Level 3.9 3.5-5.1 mmol/L Chloride Level 104 98-107 mmol/L Carbon Dioxide Level 25 20-31 mmol/L Anion Gap 9 5-15 Blood Urea Nitrogen 7 L 9-23 mg/dL Creatinine 0.72 0.550-1.02 mg/dL Glomerular Filtration Rate Calc 117 >90 mL/min BUN/Creatinine Ratio 9.7 L 10.0-20.0 Serum Glucose 101 74-106 mg/dL Calcium Level 8.3 L 8.7-10.4 mg/dL Total Bilirubin 0.5 0.2-1.0 mg/dL Aspartate Amino Transferase (AST) 17 13-40 U/L Alanine Aminotransferase (ALT) 45 H 7-40 U/L Alkaline Phosphatase 121 H 46-116 U/L Total Protein 6.4 5.7-8.2 g/dL Albumin 3.7 3.2-4.8 g/dL Urine Color Yellow Yellow Urine Clarity Clear Clear Urine pH 6.5 5.0-9.0 Urine Specific [place] > 1.050 H 1.001-1.035 Urine Protein 1+ H Negative Urine Ketones Negative Negative Urine Blood 1+ H Negative /uL Urine Nitrite Negative Negative Urine Bilirubin Negative Negative Urine Urobilinogen Normal Negative mg/dL Urine Leukocyte Esterase Trace Negative /uL Urine RBC 24 0 - 4 /hpf Urine Microscopic WBC 47 H 0-5 /HPF Urine Squamous Epithelial Cells Few <5 /hpf Urine Bacteria None seen None Seen /hpf Urine Glucose Normal Normal mg/dL Urine Test Negative Negative Lactic Acid Level 0.9 0.4-2.0 mmol/L Erythrocyte Sedimentation Rate 102 H 0-20 mm/hr Prothrombin Time 11.3 9.3-11.8 sec Prothrombin Time INR 1.07 0.9-1.15 C-Reactive Protein High Sensitivity 11.04 H <1.0 mg/dL Beta HCG, Quantitative 1.6 1.5-4.2 mIU/mL Assessment 1. Left mastitis with possible abscess. Plan/Recommendation 1. Spoke to the patient regarding her options of treatment: IV antibiotics versus incision and drainage as IR does not think there was enough fluid there to place a drain. After speaking to the patient regarding the pros and cons of each treatment, patient decided to proceed with the surgical option. Informed consent: The surgery and its risks including but not limited to infection, bleeding, open surgical site requiring local wound care, possible future scar development which can complicate possible /breast pumping were explained to the patient. All questions were answered to her satisfaction. She expressed verbal understanding and wished to proceed with the surgery. Plan discussed with: Patient DEVIN GILMORE MD Feb 14, 2025 10:47
[2025-02-14] MEDS: PANTOPRAZOLE 40 MG/10 ML VIAL INJ IV SCH (11:07)
[2025-02-14] MEDS: VANCOMYCIN 1GM/250ML KIT 250 ML IV SCH ×2 (13:30→21:34)
[2025-02-14] MEDS ORDERED: fentaNYL CITRATE 100 MCG/2 ML VL ONE (16:33)
[2025-02-14] MEDS ORDERED: HYDROmorphone HCL 2 MG/ML VL/or syr ONE (16:58)
[2025-02-14] MEDS: BUPIVACAINE W/ EPINEPH 0.5% MPF 30ML VIAL IJ ONE (16:59)
[2025-02-14] MEDS ORDERED: ONDANSETRON HCL 4 MG/2 ML VIAL ONE (17:01)
[2025-02-14] MEDS: ceFAZolin 2 GM/D5W50ml 50 ML IV ONE (17:02)
--- NOTE | 2025-02-14 17:18 | DVHOP2 ---
Operative Report - 2 Report Details Date: 02/14/25 Preop Diagnosis: Left breast abscess Postop Diagnosis: Same Surgeon: Devin Mari MD Coin Wrapping Machine Operator: None Anesthesiologist: Dr. So Anesthesia: General, Local Consent: The surgery and its risks including but not limited to infection, bleeding requiring possible blood transfusion with the risk of hepatitis or HIV infection, possible future complications of breast-feeding/pumping due to scar tissues were explained to the patient. All questions were answered to her satisfaction. She expressed verbal understanding and wished to proceed with the surgery. Complications: None Estimated Blood Loss: 5 mL Name of Procedure Performed Incision and drainage of left breast abscess Procedure Details Procedure Details: After induction of general anesthesia, patient's left breast was prepped and draped in standard surgical fashion. Approximately 20 mL of 0.5% Marcaine with epinephrine was used as local anesthesia. A curvilinear incision was made at the lateral aspect of her left areolar edge. Incision extended through the breast tissue into the abscess cavity with large amount of pus that was drained from the abscess cavity. The area was swabbed for Gram stain and culture. Cavity was then well irrigated with diluted Betadine irrigation and packed with half-inch iodoform packing strips. Surgical site was cleaned and dried dressings were applied. Sponge, needle, instrument count at the end of the case were reported to be correct by the nursing staff. The patient tolerated procedure well. At the time of dictation she is being awakened from general anesthesia. Specimen: Gram stain and culture Condition Stable Disposition Still a Patient DEVIN MARI MD Feb 14, 2025 17:18
[2025-02-14] MEDS ORDERED: ACETAMINOPHEN IV 1000 MG/100ML (10MG/ML) IV PRN (17:30)
[2025-02-14] MEDS ORDERED: ONDANSETRON HCL 4 MG/2 ML VIAL IV PRN (17:30)
[2025-02-14] MEDS ORDERED: HYDROmorphone HCL 2 MG/ML VL/or syr IV PRN (17:30)
[2025-02-14] MEDS: METOCLOPRAMIDE HCL 5MG/ml INJ 2ml VIAL IV PRN (18:00)
--- NOTE | 2025-02-14 18:45 | DVHPN2 ---
Subjective Patient is seen today, breast pain pain continues Reviewed: Care Plan Changes from previous H/P or p: No Changes General: Per HPI Objective Vitals Vital Signs Date Time Temp Pulse Resp B/P (MAP) Pulse Ox O2 Delivery O2 Flow Rate FiO2 02/14/25 17:19 106 21 100 Mask 10.0 02/14/25 17:19 100 02/14/25 13:00 100.3 94/56 (69) 100.3 Intake/Output Intake and Output 02/14/25 07:00 Intake Total 725 ml Balance 725 ml Intake Oral 0 ml IV Total 725 ml Tube Feeding 0 ml # Voids 1 Exam GEN: Healthy appearing, well-developed, NAD. HEENT: NC/AT; MMM. CV: RRR, no m/r/g. LUNGS: CTAB, no w/r/c. ABD: Soft, NT/ND, NBS, no masses or organomegaly. EXT: skin Warm, well perfused. no rashes. No clubbing, cyanosis, or edema. Left breast tender to palpation NEURO: Ambulating with no limitations. No focal deficits. Medications Current Medications Medications Dose Ordered Sig/David Route Start Time Stop Time Status Last Admin Dose Admin Docusate Sodium 100 mg BIDPRN PRN PO 02/13/25 21:00 Acetaminophen 650 mg Q6HP PRN PO 02/13/25 21:00 02/14/25 11:03 650 MG Ondansetron HCl 4 mg Q4HP PRN IV 02/13/25 21:00 Vancomycin HCl 0 ml @ 0 mls/hr UD IV 02/13/25 21:00 Piperacillin Sod/ Tazobactam Sod 100 ml @ 25 mls/hr Q8HR IV 02/13/25 22:00 02/14/25 06:56 25 MLS/HR Morphine Sulfate 4 mg Q6HPRN PRN IV 02/13/25 21:45 02/13/25 23:23 4 MG Pantoprazole Sodium 40 mg DAILY IV 02/14/25 10:00 02/14/25 11:07 40 MG Vancomycin HCl 250 ml @ 250 mls/hr Q8H IV 02/14/25 21:00 Lactated Ringer's 1,000 ml @ 75 mls/hr [id number] IV 02/14/25 17:30 Laboratory Results Laboratory Tests 02/14/25 07:35 Chemistry Test 02/14/25 07:35 Albumin 3.7 g/dL (3.2-4.8) Calcium Level 8.3 mg/dL (8.7-10.4) L Total Protein 6.4 g/dL (5.7-8.2) LFT Test 02/14/25 07:35 Alanine Aminotransferase (ALT) 45 U/L (7-40) H Alkaline Phosphatase 121 U/L (46-116) H Aspartate Amino Transferase (AST) 17 U/L (13-40) Total Bilirubin 0.5 mg/dL (0.2-1.0) Urinalysis Test 02/13/25 17:34 Urine Color Yellow (Yellow) Urine Clarity Clear (Clear) Urine pH 6.5 (5.0-9.0) Urine Specific [place] > 1.050 (1.001-1.035) Urine Protein 1+ (Negative) H Urine Ketones Negative (Negative) Urine Blood 1+ /uL (Negative) H Urine Nitrite Negative (Negative) Urine Bilirubin Negative (Negative) Urine Urobilinogen Normal mg/dL (Negative) Urine Leukocyte Esterase Trace /uL (Negative) Urine RBC 24 /hpf (0 - 4) Urine Microscopic WBC 47 /HPF (0-5) H Urine Squamous Epithelial Cells Few /hpf (<5) Urine Bacteria None seen /hpf (None Seen) Urine Glucose Normal mg/dL (Normal) Urine Test Negative (Negative) Microbiology Microbiology Date/Time Source Procedure Growth Status 02/14/25 05:00 Nose MRSA Screen - Final Complete 02/13/25 16:30 Blood Blood Culture - Preliminary NO GROWTH AFTER 24 HOURS OF INCUBATION. Resulted Labs and/or images reviewed: Labs reviewed by me, Image(s) reviewed by me Assessment/Plan Assessment/Plan 29-year-old female presents here with left breast pain that she has had for 2 weeks worse to last couple of days. She states she is currently pumping breast milk as she has a baby x3 weeks ago. It was a vaginal with no complications. She believe she has a clogged milk duct and states she has tried everything to unclog it but nothing has worked. She states last week she is having some fever or chills. She is concerned she may have mastitis now. She is also taking sunflowwer lechitan which she just started a few days ago No nausea no vomiting or diarrhea. 02/14: Patient taken to OR today for intervention for breast abscess left side. We will continue diet after. As per surgery recommendations. Continue IV broad-spectrum antibiotics. We will follow up cultures. Prn pain control, prn antipyretics. Sepsis due below Left breast abscess Leukocytosis Neutrophilia Febrile episodes Tachycardia Tachypnea Intravascular volume depletion Plan: Continue broad-spectrum antibiotics IV Appreciate surgical following External cooling for febrile episodes resistant to initial antibiotics Tylenol Continuous IV fluids Blood culture Resume diet postop as per surgery recommendations Med surge Full code Plan discussed with: Patient Date of Service: Feb 14, 2025 Billing Provider: MEENU MCMANUS MD Common Visit Codes: [id number] INP/OBS CARE(HIGH) MEENU MCMANUS MD Feb 14, 2025 18:45
[2025-02-14] MEDS: ONDANSETRON HCL 4 MG/2 ML VIAL IV PRN (20:00)
[2025-02-14] MEDS: IBUPROFEN 600 MG TAB PO SCH (21:57)
[2025-02-15 01:30] VITALS: BP 100/69; PULSE 71; RESP 18; TEMP 98.1; O2SAT 95
[2025-02-15 05:30] VITALS: BP 97/66; PULSE 57; RESP 17; TEMP 96.9; O2SAT 97
[2025-02-15 06:56] LABS: Hematocrit 31.2 % (36.0-46.0); Hemoglobin 10.1 g/dL (12.2-16.2); Mean Corpuscular Hemoglobin 28.8 pg (28.0-32.0); Mean Corpuscular Volume 88.9 fL (80.0-100.0)
[2025-02-15 07:09] LABS: Alanine Aminotransferase 35 U/L (7-40); Albumin 4.0 g/dL (3.2-4.8); Anion Gap 12 (5-15); BUN/Creatinine Ratio 12.3 (10.0-20.0); Calcium 9.0 mg/dL (8.7-10.4); Carbon Dioxide 22 mmol/L (20-31); Chloride 106 mmol/L (98-107); Potassium 4.0 mmol/L (3.5-5.1); Sodium 140 mmol/L (136-145); Total Protein 6.9 g/dL (5.7-8.2)
[2025-02-15 07:10] LABS: Bilirubin, Total 0.3 mg/dL (0.2-1.0)
[2025-02-15 07:23] LABS: Alkaline Phosphatase 127 U/L (46-116); Blood Urea Nitrogen 7 mg/dL (9-23); Glucose 132 mg/dL (74-106)
[2025-02-15] MEDS: MORPHINE SULFATE INJ 2 MG/ml SYRG IV ONE (08:30)
[2025-02-15 08:44] LABS: Total Cells Counted 100.0 (100)
[2025-02-15 08:45] LABS: Giant Platelets Few
--- NOTE | 2025-02-15 09:01 | DVHPN2 ---
Progress Note - Dictate Date Seen: Feb 15, 2025 Medical Necessity Reason Pt with a Central, PICC or Fol: No Subjective E: no major events o/n. vital signs Vital Sign Date Time Temp Pulse Resp B/P (MAP) Pulse Ox O2 Delivery O2 Flow Rate FiO2 02/15/25 05:30 96.9 57 17 97/66 (76) 97 96.9 02/14/25 20:00 Room Air* 0 21 Total Intake and Output 02/14/25 02/14/25 02/15/25 15:00 23:00 07:00 Intake Total 250 ml 650 ml Balance 250 ml 650 ml medications Current Medications Medications Dose Ordered Sig/David Route Start Time Stop Time Status Last Admin Dose Admin Docusate Sodium 100 mg BIDPRN PRN PO 02/13/25 21:00 Acetaminophen 650 mg Q6HP PRN PO 02/13/25 21:00 02/14/25 11:03 650 MG Ondansetron HCl 4 mg Q4HP PRN IV 02/13/25 21:00 02/14/25 20:00 4 MG Vancomycin HCl 0 ml @ 0 mls/hr UD IV 02/13/25 21:00 Piperacillin Sod/ Tazobactam Sod 100 ml @ 25 mls/hr Q8HR IV 02/13/25 22:00 02/15/25 06:33 25 MLS/HR Pantoprazole Sodium 40 mg DAILY IV 02/14/25 10:00 02/14/25 11:07 40 MG Vancomycin HCl 250 ml @ 250 mls/hr Q8H IV 02/14/25 21:00 02/15/25 05:08 250 MLS/HR Lactated Ringer's 1,000 ml @ 75 mls/hr [id number] IV 02/14/25 17:30 Ibuprofen 600 mg BID PO 02/14/25 22:00 02/19/25 21:59 02/14/25 21:57 600 MG Acetaminophen/ Hydrocodone Bitart 1 tab Q6HP PRN PO 02/14/25 18:45 Morphine Sulfate 2 mg Q6HPRN PRN IV 02/14/25 18:45 objective GEN: NAD LEFT BREAST: clean open surgical site. unable to pack completely d/t patient discomfort. laboratory and microbiology Laboratory Tests 02/15/25 05:48 Test 02/15/25 05:48 Range/Units Serum Glucose 132 H 74-106 mg/dL Assessment/Plan A: 1. s/p I+D left breast abscess POD #1 P: 1. cont local wound care. 2. DC home once WBC trends down. recommend oral abx on DC. 3. f/u in my clinic on 02/22. call [phone] for appt. Plan discussed with: Patient DEVIN GILMORE MD Feb 15, 2025 09:01
[2025-02-15 13:00] VITALS: BP 105/78; PULSE 71; RESP 20; TEMP 97.7; O2SAT 99
--- NOTE | 2025-02-15 14:32 | DVHPN2 ---
Subjective Patient is seen today, breast pain pain continues Reviewed: Care Plan Changes from previous H/P or p: No Changes General: Per HPI Objective Vitals Vital Signs Date Time Temp Pulse Resp B/P (MAP) Pulse Ox O2 Delivery O2 Flow Rate FiO2 02/15/25 13:00 97.7 71 20 105/78 (87) 99 97.7 02/15/25 08:00 Room Air* 0 21 Intake/Output Intake and Output 02/15/25 07:00 Intake Total 900 ml Balance 900 ml Intake Oral 300 ml IV Total 600 ml # Voids 2 Exam GEN: Healthy appearing, well-developed, NAD. HEENT: NC/AT; MMM. CV: RRR, no m/r/g. LUNGS: CTAB, no w/r/c. ABD: Soft, NT/ND, NBS, no masses or organomegaly. EXT: skin Warm, well perfused. no rashes. No clubbing, cyanosis, or edema. Left breast tender to palpation NEURO: Ambulating with no limitations. No focal deficits. Medications Current Medications Medications Dose Ordered Sig/David Route Start Time Stop Time Status Last Admin Dose Admin Docusate Sodium 100 mg BIDPRN PRN PO 02/13/25 21:00 Acetaminophen 650 mg Q6HP PRN PO 02/13/25 21:00 02/14/25 11:03 650 MG Ondansetron HCl 4 mg Q4HP PRN IV 02/13/25 21:00 02/14/25 20:00 4 MG Vancomycin HCl 0 ml @ 0 mls/hr UD IV 02/13/25 21:00 Piperacillin Sod/ Tazobactam Sod 100 ml @ 25 mls/hr Q8HR IV 02/13/25 22:00 02/15/25 06:33 25 MLS/HR Pantoprazole Sodium 40 mg DAILY IV 02/14/25 10:00 02/15/25 09:53 40 MG Vancomycin HCl 250 ml @ 250 mls/hr Q8H IV 02/14/25 21:00 02/15/25 13:09 250 MLS/HR Lactated Ringer's 1,000 ml @ 75 mls/hr [id number] IV 02/14/25 17:30 Ibuprofen 600 mg BID PO 02/14/25 22:00 02/19/25 21:59 02/14/25 21:57 600 MG Acetaminophen/ Hydrocodone Bitart 1 tab Q6HP PRN PO 02/14/25 18:45 Morphine Sulfate 2 mg Q6HPRN PRN IV 02/14/25 18:45 Laboratory Results Laboratory Tests 02/15/25 05:48 Chemistry Test 02/15/25 05:48 Albumin 4.0 g/dL (3.2-4.8) Calcium Level 9.0 mg/dL (8.7-10.4) Total Protein 6.9 g/dL (5.7-8.2) LFT Test 02/15/25 05:48 Alanine Aminotransferase (ALT) 35 U/L (7-40) Alkaline Phosphatase 127 U/L (46-116) H Aspartate Amino Transferase (AST) 19 U/L (13-40) Total Bilirubin 0.3 mg/dL (0.2-1.0) Urinalysis Test 02/13/25 17:34 Urine Color Yellow (Yellow) Urine Clarity Clear (Clear) Urine pH 6.5 (5.0-9.0) Urine Specific [place] > 1.050 (1.001-1.035) Urine Protein 1+ (Negative) H Urine Ketones Negative (Negative) Urine Blood 1+ /uL (Negative) H Urine Nitrite Negative (Negative) Urine Bilirubin Negative (Negative) Urine Urobilinogen Normal mg/dL (Negative) Urine Leukocyte Esterase Trace /uL (Negative) Urine RBC 24 /hpf (0 - 4) Urine Microscopic WBC 47 /HPF (0-5) H Urine Squamous Epithelial Cells Few /hpf (<5) Urine Bacteria None seen /hpf (None Seen) Urine Glucose Normal mg/dL (Normal) Urine Test Negative (Negative) Microbiology Microbiology Date/Time Source Procedure Growth Status 02/14/25 17:18 Breast Left Gram Stain Pending Resulted 02/14/25 17:18 Breast Left Anaerobic Culture - Preliminary Resulted 02/14/25 17:18 Breast Left Aerobic Culture Pending Resulted 02/13/25 16:30 Blood Blood Culture - Preliminary NO GROWTH AFTER 24 HOURS OF INCUBATION. Resulted Labs and/or images reviewed: Labs reviewed by me, Image(s) reviewed by me Assessment/Plan Assessment/Plan 29-year-old female presents here with left breast pain that she has had for 2 weeks worse to last couple of days. She states she is currently pumping breast milk as she has a baby x3 weeks ago. It was a vaginal with no complications. She believe she has a clogged milk duct and states she has tried everything to unclog it but nothing has worked. She states last week she is having some fever or chills. She is concerned she may have mastitis now. She is also taking sunflowwer lechitan which she just started a few days ago No nausea no vomiting or diarrhea. 02/14: Patient taken to OR today for intervention for breast abscess left side. We will continue diet after. As per surgery recommendations. Continue IV broad-spectrum antibiotics. We will follow up cultures. Prn pain control, prn antipyretics. 02/15: Postop day 1 WBC elevated, surgery following, remains on vancomycin Zosyn. Surgery wants improvement in WBC, I am in agreement. If WBC decreasing tomorrow we will deescalate antibiotics and likely discharge . We will try deescalating antibiotics to Unasyn tomorrow if WBCs decreased. Sepsis due below Left breast abscess Leukocytosis Neutrophilia Febrile episodes Tachycardia Tachypnea Intravascular volume depletion Plan: Continue broad-spectrum antibiotics IV Appreciate surgical following External cooling for febrile episodes resistant to initial antibiotics Tylenol Continuous IV fluids Blood culture Resume diet postop as per surgery recommendations Med surge Full code Plan discussed with: Patient My Orders Orders - MEENU MCMANUS MD Procedure Category Date Status Time Ibuprofen Tablet PHA 02/14/25 In Process (Motrin Tablet) 22:00 Hydrocodone-Acet PHA 02/14/25 In Process 10/325mg Tab ([place] 18:45 Morphine Sulfate PHA 02/14/25 In Process Injection 18:45 Date of Service: Feb 15, 2025 Billing Provider: MEENU MCMANUS MD Common Visit Codes: [id number] INP/OBS CARE(HIGH) MEENU MCMANUS MD Feb 15, 2025 14:32
[2025-02-15 21:00] VITALS: BP 100/64; PULSE 85; RESP 18; TEMP 98; O2SAT 98
[2025-02-15] MEDS: HYDROcodone-ACET 10/325MG TAB PO PRN (21:08)
[2025-02-15] MEDS: MORPHINE SULFATE INJ 2 MG/ml SYRG IV PRN (22:53)
[2025-02-16 01:00] VITALS: BP 95/66; PULSE 78; RESP 18; TEMP 97.9; O2SAT 98
[2025-02-16 05:00] VITALS: BP 102/67; PULSE 75; RESP 18; TEMP 98.1; O2SAT 95
[2025-02-16 06:19] LABS: Hematocrit 29.7 % (36.0-46.0); Hemoglobin 9.9 g/dL (12.2-16.2); Mean Corpuscular Hemoglobin 28.4 pg (28.0-32.0); Mean Corpuscular Volume 85.4 fL (80.0-100.0); Nucleated Red Blood Cells % 0.0 %
[2025-02-16 06:39] LABS: Alanine Aminotransferase 47 U/L (7-40); Albumin 3.3 g/dL (3.2-4.8); Alkaline Phosphatase 105 U/L (46-116); Anion Gap 10 (5-15); BUN/Creatinine Ratio 15.9 (10.0-20.0); Bilirubin, Total 0.2 mg/dL (0.2-1.0); Blood Urea Nitrogen 13 mg/dL (9-23); Calcium 8.3 mg/dL (8.7-10.4); Carbon Dioxide 26 mmol/L (20-31); Chloride 109 mmol/L (98-107); Glucose 98 mg/dL (74-106); Potassium 3.7 mmol/L (3.5-5.1); Sodium 145 mmol/L (136-145); Total Protein 6.0 g/dL (5.7-8.2)
[2025-02-16 09:00] VITALS: BP 97/69; PULSE 88; RESP 16; TEMP 96.3; O2SAT 92
[2025-02-16] MEDS ORDERED: CLIN1CAP70 PO (11:57)
--- NOTE | 2025-02-16 11:58 | DVHDS2 ---
Discharge Summary Date of Admission Feb 13, 2025 at 20:52 Date of Discharge: Feb 16, 2025 Labs/Diagnostic Data: Laboratory Results Test 02/16/25 05:48 02/16/25 05:40 02/15/25 12:00 02/15/25 05:48 White Blood Count 11.3 10^3/uL (4.4-10.8) Red Blood Count 3.48 10^6/uL (4.0-5.20) Hemoglobin 9.9 g/dL (12.2-16.2) Hematocrit 29.7 % (36.0-46.0) Mean Corpuscular Volume 85.4 fL (80.0-100.0) Mean Corpuscular Hemoglobin 28.4 pg (28.0-32.0) Mean Corpuscular Hemoglobin Concent 33.3 g/dL (32.0-36.0) Red Cell Distribution Width 14.7 % (11.8-14.3) Platelet Count 254 10^3/uL (140-450) Mean Platelet Volume 10.0 fL (6.9-10.8) Neutrophils (%) (Auto) 80.1 % (37.0-80.0) Lymphocytes (%) (Auto) 13.8 % (10.0-50.0) Monocytes (%) (Auto) 3.8 % (0.0-12.0) Eosinophils (%) (Auto) 2.1 % (0.0-7.0) Basophils (%) (Auto) 0.2 % (0.0-2.0) Neutrophils # (Auto) 9.0 10 ^3/uL (1.6-8.6) Lymphocytes # (Auto) 1.6 10 ^3/uL (0.4-5.4) Monocytes # (Auto) 0.4 10 ^3/uL (0-1.3) Eosinophils # (Auto) 0.2 10 ^3/uL (0-0.8) Basophils # (Auto) 0 10 ^3/uL (0-0.2) Nucleated Red Blood Cells 0.0 % Sodium Level 145 mmol/L (136-145) Potassium Level 3.7 mmol/L (3.5-5.1) Chloride Level 109 mmol/L (98-107) Carbon Dioxide Level 26 mmol/L (20-31) Anion Gap 10 (5-15) Blood Urea Nitrogen 13 mg/dL (9-23) Creatinine 0.82 mg/dL (0.550-1.02) Glomerular Filtration Rate Calc 100 mL/min (>90) BUN/Creatinine Ratio 15.9 (10.0-20.0) Serum Glucose 98 mg/dL (74-106) Calcium Level 8.3 mg/dL (8.7-10.4) Total Bilirubin 0.2 mg/dL (0.2-1.0) Aspartate Amino Transferase (AST) 36 U/L (13-40) Alanine Aminotransferase (ALT) 47 U/L (7-40) Alkaline Phosphatase 105 U/L (46-116) Total Protein 6.0 g/dL (5.7-8.2) Albumin 3.3 g/dL (3.2-4.8) Vancomycin Level Trough 14.8 ug/mL (5-10) Differential Total Cells Counted 100.0 (100) Neutrophils % (Manual) 96 (37.0-80.0) Band Neutrophils % (Manual) 0 Lymphocytes % (Manual) 2 (10.0-50.0) Monocytes % (Manual) 2 (0-12) Eosinophils % (Manual) 0 (0-7) Basophils % (Manual) 0 (0.0-2.0) Metamyelocytes % (manual) 0 Myelocytes % (Manual) 0 Promyelocytes % (Manual) 0 Blast Cells % (Manual) 0 Reactive Lymphocytes 0 Platelet Estimate Adequate Clumped Platelets None Giant Platelets Few Test 02/13/25 17:34 02/13/25 16:30 02/13/25 16:02 Urine Color Yellow (Yellow) Urine Clarity Clear (Clear) Urine pH 6.5 (5.0-9.0) Urine Specific [place] > 1.050 (1.001-1.035) Urine Protein 1+ (Negative) Urine Ketones Negative (Negative) Urine Blood 1+ /uL (Negative) Urine Nitrite Negative (Negative) Urine Bilirubin Negative (Negative) Urine Urobilinogen Normal mg/dL (Negative) Urine Leukocyte Esterase Trace /uL (Negative) Urine RBC 24 /hpf (0 - 4) Urine Microscopic WBC 47 /HPF (0-5) Urine Squamous Epithelial Cells Few /hpf (<5) Urine Bacteria None seen /hpf (None Seen) Urine Glucose Normal mg/dL (Normal) Urine Test Negative (Negative) Lactic Acid Level 0.9 mmol/L (0.4-2.0) Erythrocyte Sedimentation Rate 102 mm/hr (0-20) Prothrombin Time 11.3 sec (9.3-11.8) Prothrombin Time INR 1.07 (0.9-1.15) C-Reactive Protein High Sensitivity 11.04 mg/dL (<1.0) Beta HCG, Quantitative 1.6 mIU/mL (1.5-4.2) Other Laboratory Tests 02/16/25 05:48 02/16/25 05:40 Brief Hx & Hospital Course: 29-year-old female presents here with left breast pain that she has had for 2 weeks worse to last couple of days. She states she is currently pumping breast milk as she has a baby x3 weeks ago. It was a vaginal with no complications. She believe she has a clogged milk duct and states she has tried everything to unclog it but nothing has worked. She states last week she is having some fever or chills. She is concerned she may have mastitis now. She is also taking sunflowwer lechitan which she just started a few days ago No nausea no vomiting or diarrhea. 02/14: Patient taken to OR today for intervention for breast abscess left side. We will continue diet after. As per surgery recommendations. Continue IV broad-spectrum antibiotics. We will follow up cultures. Prn pain control, prn antipyretics. 02/15: Postop day 1 WBC elevated, surgery following, remains on vancomycin Zosyn. Surgery wants improvement in WBC, I am in agreement. If WBC decreasing tomorrow we will deescalate antibiotics and likely discharge . We will try deescalating antibiotics to Unasyn tomorrow if WBCs decreased. 02/16: Patient appearing well, breast healing. We will discharge patient on oral antibiotics and outpatient follow up on sensitivities. . Follow up with surgery to remove surgical packing. Stable for discharge as per plan below diagnosis: Sepsis due below Left breast abscess, Status post incision and drainage 02/15/2025 Leukocytosis Neutrophilia Febrile episodes Tachycardia Tachypnea Intravascular volume depletion Discharge plan: -Clindamycin 300 mg 4 times daily for 7 days -Take probiotic, plain Czech yogurt tablespoonful, twice daily for 10 days -Follow up with surgery 1 week. surgery to remove surgical packing in drainage area. -Follow up with [facility] clinic upcoming Friday with repeat CBC. - No forced suctioned or pumping unaffected breast,. Continuing to pump on unaffected breast. -Follow up with PCP - [facility] clinic and PCP to follow up with abscess cultures, 2 evaluate appropriate sensitivity to clindamycin. Condition at Discharge: Fair Final Diagnosis/Problems List Sepsis due below Left breast abscess, Status post incision and drainage 02/15/2025 Leukocytosis Neutrophilia Febrile episodes Tachycardia Tachypnea Intravascular volume depletion Discharge Disposition: Home Discharge Instruct/Medications Diet: Regular Activity: No Restrictions, As Tolerated Follow Up/Referral: below Medications: below Scheduled Clindamycin Hcl (Clindamycin Hcl), 300 MG PO QID Docusate Sodium (Colace), 1 CAP PO BID Vit W/ Ferrous Fumara ( One Daily), 1 TAB PO DAILY, (Reported) Scheduled PRN Ibuprofen (Ibuprofen), 1 TAB PO Q6HPRN PRN Discharge Statement: "Patient was advised to return to the ER or call 911 if any headaches, dizziness, shortness of breath, chest pain, abdominal pain, bleeding, fevers, or worsening of medical condition. Patient was counseled about treatment plan, medications, possible side effects, patientverbalized understanding. All questions were answered to the best of my ability. This discharge took greater then 30 minutes in planning, reviewing documentation, counseling the patient, and discussing with other team members." Date of Service: Feb 16, 2025 Billing Provider: MEENU MCMANUS MD Common Visit Codes: 96840-AVU/OBS DISCH DAY >30min MEENU MCMANUS MD Feb 16, 2025 11:58
[2025-02-16 13:00] VITALS: BP 109/73; PULSE 83; RESP 16; TEMP 98; O2SAT 98
[2025-02-16 17:00] VITALS: BP 115/79; PULSE 84; RESP 16; TEMP 97.4; O2SAT 94
== END 2025-02-16 18:20 | disposition home or self-care (01) | DRG 720 ==
LOC: ER 14:11 → OVERFLOW 20:52 → EAST 02-14 18:14
PROVIDERS: ADMIT Student in an Organized Health Care Education/Training Program; ATTEND Student in an Organized Health Care Education/Training Program
PROC: 0H9U0ZX Drainage of Left Breast, Open Approach, Diagnostic (ICD-10-PCS; principal; 2025-02-14 16:47)
DX: A41.9 Sepsis, unspecified organism (principal); E86.9 Volume depletion, unspecified; N61.1 Abscess of the breast and nipple; Z79.1 Long term (current) use of non-steroidal anti-inflammatories (NSAID); Z79.899 Other long term (current) drug therapy
CPT/HCPCS: 36415; 71260; 76642; 80048; 80053; 80202; 81001; 81025; 83605; 84702; 85007; 85025; 85027; 85610; 85652; 86141; 87040; 87070; 87075; 87081; 87205; 96365; 96375; 99291; G0378; J1100; J1885; J2405; J2470; J2543